=== PATIENT | female | born 1935 | race Caucasian/White ===

== ENCOUNTER 2018-07-24 13:13 | Inpatient (IN) | payer BC, OTHER ==
[2018-07-24 13:32] VITALS: BMI 23.7
--- NOTE | 2018-07-24 14:16 | PDOC ---
Attending Attestation - Resident Resident Name: Awais Garcia - ED Attending Attestation I have performed the following: I have examined & evaluated the patient, The case was reviewed & discussed with the resident, I agree w/resident's findings & plan, Exceptions are as noted - HPI HPI: 07/24/18 14:14 83 yo F h/o mult med problems here with c/o leg pain and back pain following a recent fall 2 weeks ago. ws taking pain medication at home, suddently pain got worse. no new weakness or numbness. on exam pain on palpation back, and paresthesia. - Medical Decision Making 83 yo F s/p fall one week ago, known retrolisthesis l5, s1, now with decreased sensation right foot. concerns for nerve root or cord compromise. pt unable to have mri due to pacer. unabmulatory, will require admission for pt and possible rehab, pain control ua r/o uti, labs, and cxr. cxr unremarkable. labd unremarkable. awaiting ua an ct spine. signed out to oncoming physician dr. zapien, 07/24/18 16:23 07/24/18 16:29 d/w dr Lauri joshua, will see pt in hospital. recommed Cla[facility] R[facility] for spine . ct pending. will admit . <Trudi Cuello - Last Filed: 07/24/18 16:29> - HPI HPI: 07/24/18 15:32 The patient is an 83-year-old female with past medical history significant for HTN, DM, pacemaker placement a year ago, stent placement, and L. knee partial replacement presents to the emergency department with worsening pain, s/p a fall 2 weeks prior. Per family, the patient suffered a fall about 2 weeks prior , was seen at [facility] where she had an X-ray was done that read grade 2/3 anterolisthesis of the L5 on S1. The patient was discharged with pain medication. The patient reports on Friday the pain worsened since then the patients been nonambulatory. The family report patient had an appointment with ortho, secondary to pain patient was unable to follow up. Allergies: NKA Social history: No past or present use of tobacco, alcohol or recreational drug use. Surgical history: partial knee replacement, pacemaker, and stents. PCP: Shayla Hansen - Physicial Exam PE: 07/24/18 15:32 GENERAL: Awake, alert, and fully oriented, in no acute distress HEAD: No signs of trauma LUNGS: Breath sounds equal, clear to auscultation bilaterally. No wheezes, and no crackles HEART: 3/6 systolic murmur. Regular rate and rhythm, normal S1 and S2, no rubs or gallops ABDOMEN: Soft, nontender, normoactive bowel sounds. No guarding, no rebound. No masses Pelvic exam: tender to palpation, R. hip full ROM, nontender. Back: spinal tenderness to the lower lumbar and sacral region, no cervical and thoracic spine tenderness. EXTREMITIES: lower extremity: decreased sensation to the dorsum of the right foot great/second toe, 5/5 strength in all 4 extremity. no edema. No clubbing or cyanosis. No cords. NEUROLOGICAL: Cranial nerves II through XII grossly intact. Normal speech. SKIN: Warm, Dry, normal turgor, no rashes or lesions noted. - Medical Decision Making 07/24/18 15:32 Documentation prepared by Adrianne Diehl, acting as medical billing associate for Trudi Cuello MD. 07/24/18 16:[address] Joshua. 07/24/18 16:[address] Joshua. 07/24/18 16:[address] Ngyuen. <Adrianne Diehl - Last Filed: 07/24/18 16:42> Heart Score/ECG Review #1 Compared to previous ECG there are: Other (paced ekg, TWI I AVL, LVH, left axis. v4 - v6.) <Trudi Cuello - Last Filed: 07/24/18 16:29>
--- NOTE | 2018-07-24 15:17 | PDOC ---
History of Present Illness <Sam Hankins - Last Filed: 07/24/18 18:23> - History of Present Illness Initial Comments: 07/24/18 15:05 83 yo PMH HTN, DM, Hysterectomy, pacemaker and stent 2017, L knee partial replacement, osteoporosis, multiple falls, p/w worsening acute on chronic back pain w/ decreased sensation of dorsal R foot in the setting of recent witnessed mechanical fall 2 wks ago. Pt had mechanical fall 2 wks ago but did not LOC or hit head. pt was w/u at [facility] and was found per XR report, w/ acute mildly displaced frx of R superior and inferior pubic rami, 2.2 cm anterolisthesis of L5 on S1 w/ b/l L5 pars defect, and focal anterior cortical irregularity of the lower sacrum/coccyx which may be artifactual or a nondisplaced frx. pt was medically managed ad dc w/ referral to ortho. Pt was able to walk (baseline pt ambulates w/ cane/walker) and pain was ctl w/ tylenol/ codeine (300/30). 1 week ago pt pain worsened w/ no obvious inciting factors or cause. pt is now unable to ambulate and has noticed decreased sensation of dorsal R foot specifically betw digit 1 and 2. Denies fevers, chills, DELGADO, cp, sob, n/v/d, urinary sxs, blood in stools. SH: denies smoke etoh drugs <Awais Garcia - Last Filed: 07/24/18 18:29> - General Chief Complaint: Back Pain Stated Complaint: Back Pain Past History <Sam Hankins - Last Filed: 07/24/18 18:23> - Past Medical History Anemia: No Asthma: No Cancer: No Cardiac Disorders: Yes CVA: No COPD: No CHF: No Dementia: No Diabetes: Yes (pre) GI Disorders: Yes Disorders: No HTN: Yes Hypercholesterolemia: Yes Liver Disease: No Seizures: No Thyroid Disease: No - Surgical History Abdominal Surgery: Yes Appendectomy: Yes Cardiac Surgery: Yes (stent pacemaker metronic) Cholecystectomy: No Lung Surgery: No Neurologic Surgery: No Orthopedic Surgery: Yes (partial left knee replacement) - Suicide/Smoking/Psychosocial Hx Smoking History: Never smoked Have you smoked in the past 12 months: No Information on smoking cessation initiated: No Hx Alcohol Use: No Drug/Substance Use Hx: No Substance Use Type: None <Awais Garcia - Last Filed: 07/24/18 18:29> - Past Medical History Allergies/Adverse Reactions: Allergies Allergy/AdvReac Type Severity Reaction Status Date / Time No Known Allergies Allergy Verified 01/01/12 09:12 Home Medications: Ambulatory Orders Metformin HCl [Glucophage] 500 mg PO DAILY 01/01/12 Verapamil HCl ER [Calan Sr] 240 mg PO AM 01/01/12 Apixaban [Eliquis -] 5 mg PO BID 07/24/18 Atorvastatin Ca [Lipitor] 20 mg NR 07/24/18 Metoprolol Succinate 50 mg PO DAILY 07/24/18 Sertraline HCl [Zoloft] 100 mg PO DAILY 07/24/18 Review of Systems - Review of Systems Constitutional: Yes: See HPI HEENTM: Yes: See HPI Respiratory: Yes: See HPI Cardiac (ROS): Yes: See HPI ABD/GI: Yes: See HPI : Yes: See HPI Musculoskeletal: Yes: See HPI Integumentary: Yes: See HPI Neurological: Yes: See HPI Endocrine: Yes: See HPI Hematologic/Lymphatic: Yes: See HPI <Lemuel Garciayeh - Last Filed: 07/24/18 18:29> *Physical Exam - Vital Signs Last Vital Signs Temp Pulse Resp BP Pulse Ox 98 F 82 18 152/100 98 07/24/18 17:11 07/24/18 18:04 07/24/18 18:04 07/24/18 18:04 07/24/18 18:04 <Sam Hankins - Last Filed: 07/24/18 18:23> - Vital Signs Last Vital Signs Temp Pulse Resp BP Pulse Ox 97.7 F 92 H 17 170/104 H 97 07/24/18 13:25 07/24/18 13:41 07/24/18 13:41 07/24/18 13:41 07/24/18 13:41 - Physical Exam Comments: 07/24/18 15:24 General: Well-nourished, NAD HEENT: NCAT, MMM Neck: Supple, no lymphadenopathy Respiratory: CTAB cardio: RRR S1 S2 no m/r/g Abdomen: +BS , soft, NTND Back: TTP in lumbar and sacral paraspinal and spinous processes Extremities: radial 2+ b/l. Warm, dry, no cyanosis, edema, clubbing or calf tenderness. TTP R dorsum of foot. surgical scar L knee Skin: intact. no rashes Neuro: Alert and oriented x3, strength grossly intact. decreased sensation R dorsum of foot betw great and second toe Psych: Normal mood and affect <Awais Garcia - Last Filed: 07/24/18 18:29> ED Treatment Course - LABORATORY CBC & Chemistry Diagram: 07/24/18 15:13 07/24/18 15:13 - ADDITIONAL ORDERS Additional order review: Laboratory Results 07/24/18 15:13 Sodium 141 Potassium 3.5 Chloride 104 Carbon Dioxide 28 Anion Gap 10 BUN 21 H Creatinine 0.9 Creat Clearance w eGFR 59.51 Random Glucose 125 H Calcium 8.8 Total Bilirubin 1.4 H AST 27 ALT 16 Alkaline Phosphatase 158 H Total Protein 6.9 Albumin 3.6 07/24/18 15:13 RBC 3.79 MCV 90.6 MCHC 33.2 RDW 18.9 H MPV 7.0 L Neutrophils % 86.3 H Lymphocytes % 6.5 L Monocytes % 6.0 Eosinophils % 0.6 Basophils % 0.6 - Medications Given in the ED: ED Medications Discontinued Medications Generic Name Dose Route Start Last Admin Trade Name Jose PRN Reason Stop Dose Admin Lidocaine 1 patch 07/24/18 15:19 07/24/18 17:01 Lidoderm Patch - TP 07/24/18 15:20 1 patch ONCE ONE Administration Morphine Sulfate 2 mg 07/24/18 15:22 07/24/18 15:50 Morphine Injection - IVPUSH 07/24/18 15:23 2 mg ONCE ONE Administration <Sam Hankins - Last Filed: 07/24/18 18:23> - LABORATORY CBC & Chemistry Diagram: 07/24/18 15:13 07/24/18 15:13 - RADIOLOGY Radiology Studies Ordered: Category Date Time Status LUMBAR SPINE CT W/O CONTRAST [CT] Stat CT Scan 07/24/18 15:03 Ordered CHEST X-RAY PORTABLE* [RAD] Stat Radiology 07/24/18 15:02 Ordered <Awais Garcia - Last Filed: 07/24/18 18:29> Medical Decision Making - Medical Decision Making 07/24/18 15:17 83 yo PMH HTN, DM, Hysterectomy, pacemaker and stent 2017, L knee partial replacement, osteoporosis, multiple falls, p/w worsening acute on chronic back pain w/ decreased sensation of dorsal R foot in the setting of recent witnessed mechanical fall 2 wks ago. Per XR report at [facility]: acute mildly displaced frx of R superior and inferior pubic rami, 2.2 cm anterolisthesis of L5 on S1 w/ b/l L5 pars defect, and focal anterior cortical irregularity of the lower sacrum/coccyx which may be artifactual or a nondisplaced frx. Ddx: cauda equina/cord compression, worsening of frx, lumbar strain, disc herniation, epidural abscess -CBC, CMP, UA, CXR, EKG -lumbar CT -pt has pacemaker and not a candidate for MRI -morphine and lido derm patch for pain ctl 07/24/18 16:43 CBC, CMP grossly unremarkable CXR - Single view the chest reveals an aortic stent since 01/09/2009. Is a double lead pacemaker, large heart but clear lungs. There appears to be old right rib trauma. There are cystic changes in the left shoulder. Will admit to inpatient for unable to ambulate and will f/u CT lumbar d/w dr Lauri reis, will see pt in hospital. [facility] Ruff consulted for spine <Awais Garcia - Last Filed: 07/24/18 18:29> *DC/Admit/Observation/Transfer - Discharge Dispostion Decision to Admit order: Yes <Sam Hankins - Last Filed: 07/24/18 18:23> <Awais Garcia - Last Filed: 07/24/18 18:29> Diagnosis at time of Disposition: Back pain Qualifiers: Back pain location: low back pain Chronicity: acute Back pain laterality: right Sciatica presence: with sciatica Sciatica laterality: sciatica of right side Qualified Code(s): M54.41 - Lumbago with sciatica, right side - Discharge Dispostion Condition at time of disposition: Stable
[2018-07-24 15:18] LABS: BASO % 0.6 % (0-2.0); EOS % 0.6 % (0-4.5); HEMATOCRIT 34.4 % (32.4-45.2); HEMOGLOBIN 11.4 GM/dL (10.7-15.3); LYMPH % 6.5 % (8-40); MCH 30.1 pg (25.7-33.7); MCHC 33.2 g/dl (32.0-36.0); MEAN CELL VOLUME 90.6 fl (80-96); NEUT % 86.3 % (42.8-82.8); PLATELET COUNT 342 K/MM3 (134-434); RBC 3.79 M/mm3 (3.60-5.2); RDW 18.9 % (11.6-15.6); WHITE BLOOD COUNT 8.5 K/mm3 (4.0-10.0)
[2018-07-24] MEDS ORDERED: LIDOCAINE 5% TOPICAL PATCH TP ONE (15:19)
[2018-07-24] MEDS ORDERED: morphine CARPU-JECT 4 MG/1 ML DISP.SYRIN IVPUSH ONE (15:22)
[2018-07-24] MEDS ORDERED: morphine SULFATE 4 MG/ML VIAL ONE (15:46)
[2018-07-24 16:00] LABS: BLOOD UREA NITROGEN 21 mg/dL (7-18); GLUCOSE,RANDOM 125 mg/dL (74-106)
[2018-07-24 16:01] LABS: ALBUMIN 3.6 g/dl (3.4-5.0); ALK PHOS 158 U/L (45-117); ANION GAP 10 MMOL/L (8-16); BILIRUBIN,TOTAL 1.4 mg/dL (0.2-1); CALCIUM 8.8 mg/dL (8.5-10.1); CHLORIDE 104 mmol/L (98-107); CO2 28 mmol/L (21-32); CREATININE 0.9 mg/dL (0.55-1.3); POTASSIUM 3.5 mmol/L (3.5-5.1); SGOT/AST 27 U/L (15-37); SGPT/ALT 16 U/L (13-61); SODIUM 141 mmol/L (136-145); TOT PROT 6.9 g/dl (6.4-8.2)
[2018-07-24] MEDS ORDERED: LIDOCAINE 5% TOPICAL PATCH ONE (16:07)
[2018-07-24] MEDS: MORPHINE SULFATE 2 MG/ML VIAL IVPUSH PRN (20:26)
[2018-07-24] MEDS: APIXABAN 5 MG TABLET PO SCH (21:56)
[2018-07-24] MEDS: ATORVASTATIN CA 20 MG TABLET (FP) PO SCH (21:57)
[2018-07-24] MEDS: LIDOCAINE PATCH REMOVAL MC SCH (21:57)
--- NOTE | 2018-07-24 23:49 | HP ---
Admitting History and Physical - Primary Care Physician PCP: Lauri Joshua - Admission Chief Complaint: Back pain. Right leg pain, radiating from the back History of Present Illness: Pt with significant Hx/o falls, s/p mechanical fall 2 weeks ago, seen in [facility] ER, told to have right side pubic rami fracture, L5-S1 anterolisthesis and possible coccyx fracture, DC'ed home with Ortho appt, started to have worsening back pain, more at mid to lower lumbar area, 5 days ( on Friday) to the point that pt became bedbound; pt states that her pain is going down to the right leg and now cannot move much the right leg secondary to back pain. History Source: Patient, Family Member (pt's daughter at bedside) - Past Medical History Cardiovascular: Yes: CAD (s/p PCI with stent placemnet), HTN, Hyperlipdemia Endocrine: Yes: Diabetes Mellitus - Past Surgical History Past Surgical History: Yes: Hysterectomy Additional Past Surgical History: Left Knee replacement - Smoking History Smoking history: Former smoker Have you smoked in the past 12 months: No - Alcohol/Substance Use Hx Alcohol Use: No Home Medications - Allergies Allergies/Adverse Reactions: Allergies Allergy/AdvReac Type Severity Reaction Status Date / Time No Known Allergies Allergy Verified 01/01/12 09:12 - Home Medications Home Medications: Ambulatory Orders Metformin HCl [Glucophage] 500 mg PO DAILY 01/01/12 Verapamil HCl ER [Calan Sr] 240 mg PO AM 01/01/12 Apixaban [Eliquis -] 5 mg PO BID 07/24/18 Atorvastatin Ca [Lipitor] 20 mg NR 07/24/18 Metoprolol Succinate 50 mg PO DAILY 07/24/18 Sertraline HCl [Zoloft] 100 mg PO DAILY 07/24/18 Review of Systems - Review of Systems Constitutional: denies: Chills, Fever Eyes: denies: Blurred Vision, Double Vision HENT: denies: Ear Discharge, Ear Pain, Nasal Congestion, Throat Pain Neck: denies: Pain on Movement, Stiffness Cardiovascular: denies: Chest Pain, Edema, Palpitations Respiratory: reports: Wheezing. denies: Cough, SOB Gastrointestinal: denies: Abdominal Pain, Nausea, Vomiting Genitourinary: denies: Burning, Discharge Musculoskeletal: reports: Back Pain Integumentary: denies: Blister, Erythema Neurological: reports: Unsteady Gait (old). denies: Change in LOC, Change in Speech, Confusion, Numbness, Parasthesia Endocrine: denies: Excessive Sweating, Intolerance to Cold Hematology/Lymphatic: denies: Easily Bruised, Excessive Bleeding Psychiatric: denies: Anxiety, Depression Physical Examination Vital Signs: Vital Signs Temperature 98 F 07/24/18 17:11 Pulse Rate 82 07/24/18 18:04 Respiratory Rate 18 07/24/18 18:04 Blood Pressure 152/100 07/24/18 18:04 O2 Sat by Pulse Oximetry (%) 98 07/24/18 18:04 Constitutional: Yes: No Distress, Calm Eyes: Yes: Conjunctiva Clear, EOM Intact HENT: No: Pharyngeal Erythema, Rhinnorhea Neck: Yes: Trachea Midline. No: Lymphadenopathy Cardiovascular: Yes: Regular Rate and Rhythm, S1, S2 Respiratory: Yes: Regular, CTA Bilaterally. No: Rales Gastrointestinal: Yes: Normal Bowel Sounds, Soft. No: Tenderness ...Rectal Exam: Yes: Deferred Breast(s): Yes: Other (deferred) Musculoskeletal: Yes: Back Pain (worse with right leg movement). No: Joint Stiffness Extremities: No: Cold, Cool Edema: No Integumentary: Yes: Bruising (of the left knee) Neurological: Yes: Alert, Oriented, Other (Motor of the right leg is limited ( lifting the leg pasive or active at 15 degrees) by pain; sensation to touch and proprioception is decreased in the right foot. Otherwise normal motor and sensory exam in UE/ left LE/ face.) Psychiatric: Yes: Alert, Oriented Labs: CBC, BMP 07/24/18 15:13 07/24/18 15:13 Imaging - Results Chest X-ray: Image Reviewed Cat Scan: Pending Problem List - Problems (1) Back pain Code(s): M54.9 - DORSALGIA, UNSPECIFIED Qualifiers: Back pain location: low back pain Chronicity: acute Back pain laterality : right Sciatica presence: with sciatica Sciatica laterality: sciatica of right side Qualified Code(s): M54.41 - Lumbago with sciatica, right side (2) Sensory abnormality of lumbar dermatome distribution Code(s): R20.8 - OTHER DISTURBANCES OF SKIN SENSATION (3) Neuropathy Code(s): G62.9 - POLYNEUROPATHY, UNSPECIFIED (4) Hypertension, uncontrolled Code(s): I10 - ESSENTIAL (PRIMARY) HYPERTENSION (5) Fall Code(s): W19.XXXA - UNSPECIFIED FALL, INITIAL ENCOUNTER (6) Pelvic fracture Code(s): S32.9XXA - FRACTURE OF UNSP PARTS OF LUMBOSACRAL SPINE AND PELVIS, INIT (7) Anterolisthesis Code(s): M43.10 - SPONDYLOLISTHESIS, SITE UNSPECIFIED (8) Impaired gait Code(s): R26.9 - UNSPECIFIED ABNORMALITIES OF GAIT AND MOBILITY (9) Diabetes mellitus Code(s): E11.9 - TYPE 2 DIABETES MELLITUS WITHOUT COMPLICATIONS Assessment/Plan To f/u CT scan report NeuroSx consult Neurology consult Pain control DVT prophylaxis Restart Metoprolol AM labs
[2018-07-25] MEDS: MORPHINE SULFATE 2 MG/ML VIAL IVPUSH PRN ×2 (02:50→08:19)
[2018-07-25] MEDS: VERAPAMIL HCL 240 MG E.R. TABLET (FP) PO SCH (06:46)
[2018-07-25] MEDS: metFORMIN HCL 500 MG TABLET (FP) PO SCH (06:46)
[2018-07-25] MEDS: INSULIN SLIDING SCALE (NOVOLOG) 1 VIAL SQ SCH ×2 (06:52→16:42)
[2018-07-25 08:03] LABS: HEMATOCRIT 33.4 % (32.4-45.2); HEMOGLOBIN 11.2 GM/dL (10.7-15.3); MCH 30.2 pg (25.7-33.7); MCHC 33.6 g/dl (32.0-36.0); MEAN CELL VOLUME 89.9 fl (80-96); MEAN PLT VOLUME 6.9 fl (7.5-11.1); PLATELET COUNT 315 K/MM3 (134-434); RBC 3.71 M/mm3 (3.60-5.2); RDW 19.3 % (11.6-15.6); WHITE BLOOD COUNT 6.6 K/mm3 (4.0-10.0)
--- NOTE | 2018-07-25 08:54 | PN ---
Progress Note (short form) - Note Progress Note: NEUROSURGERY CONSULT DICTATED Asked to r/o "cauda equina/cord compression" H/o HTN, PPM, CAD, L knee partial replacement, s/p mechanical fall 2 weeks ago, seen in [facility] ER, and found to have right side pubic rami fracture, L5-S1 anterolisthesis and possible coccyx fracture. c/o worsening low back pain and could not ambulate; R knee pain and numbness. Denies foot numbness. No B/B control issue. PE: AF, VSS General- unremarkable CN- intact; Motor- 5/5 except R EHL/TA/gastroc/IP 4/5; Sensation- intact LT; DTR - hyporeflexic CT LS spine- grade II L5-S1 isthmic spondyolisthesis (B L5 pars defect); canal not compromised,marked B L5-S1 foramenal stenosis; DJD throughout; sacral fracture (S1, S2, and S1 laminar, non-displaced) Reported pelvic rami fx and sacral vertical fracture B 5 spondyolysis with L5-S1 spondyolisthesis with R L5 radiculopathy; no cauda equina syndrome (there is no cord at L5-S1, conus ends at L1-2) Add Neurontin for radicular pain and back pain Could consider LSO (lumbo-sacral) for immobilization/support Can consider EPSI if persistent pain Rehab recommended Pt not interested in surgical intervention anyway
[2018-07-25 09:11] LABS: ALBUMIN 3.5 g/dl (3.4-5.0); ALK PHOS 157 U/L (45-117); ANION GAP 12 MMOL/L (8-16); BILIRUBIN,TOTAL 1.4 mg/dL (0.2-1); BLOOD UREA NITROGEN 23 mg/dL (7-18); CALCIUM 8.9 mg/dL (8.5-10.1); CHLORIDE 105 mmol/L (98-107); CO2 24 mmol/L (21-32); CREATININE 0.7 mg/dL (0.55-1.3); GLUCOSE,RANDOM 95 mg/dL (74-106); POTASSIUM 3.1 mmol/L (3.5-5.1); SGOT/AST 19 U/L (15-37); SGPT/ALT 15 U/L (13-61); SODIUM 141 mmol/L (136-145); TOT PROT 6.6 g/dl (6.4-8.2)
[2018-07-25] MEDS ORDERED: FLU VACCINE QUAD 60 MCG/0.5 ML (MDV 18-19) IM ONE (10:00)
[2018-07-25] MEDS: APIXABAN 5 MG TABLET PO SCH ×2 (10:08→21:21)
[2018-07-25] MEDS: SERTRALINE HCL 50 MG TABLET (FP) PO SCH (10:08)
--- NOTE | 2018-07-25 10:26 | EKG ---
Test Reason : Blood Pressure : / mmHG Vent. Rate : 086 BPM Atrial Rate : 086 BPM P-R Int : 186 ms QRS Dur : 166 ms QT Int : 466 ms P-R-T Axes : 042 -07 170 degrees QTc Int : 557 ms Atrial-sensed ventricular-paced rhythm ABNORMAL ECG WHEN COMPARED WITH ECG OF 09-JAN-2009 07:19, ELECTRONIC VENTRICULAR PACEMAKER HAS REPLACED SINUS RHYTHM Confirmed by MARIA EUGENIA COLLINS MD ([id number]) on 07/25/2018 10:26:34 AM Referred By: Confirmed By:MARIA EUGENIA COLLINS MD
--- NOTE | 2018-07-25 11:01 | PN ---
Progress Note, Physician Chief Complaint: events noted pgt in bed, family (daughter, son) at bedside pt with occasional back and pelvic pain - Current Medication List Current Medications: Active Medications Apixaban (Eliquis -) 5 mg PO BID [facility] Last Admin: 07/25/18 10:08 Dose: 5 mg Atorvastatin Calcium (Lipitor -) 20 mg PO HS [facility] Last Admin: 07/24/18 21:57 Dose: 20 mg Gabapentin (Neurontin -) 300 mg PO TID [facility] Insulin Aspart (Novolog Vial Sliding Scale -) 1 vial SQ BIDAC [facility]; Protocol Last Admin: 07/25/18 06:52 Dose: Not Given Metformin HCl (Glucophage -) 500 mg PO 0700 [facility] Last Admin: 07/25/18 06:46 Dose: 500 mg Metoprolol Succinate (Toprol Xl -) 50 mg PO DAILY [facility] Last Admin: 07/25/18 10:08 Dose: 50 mg Miscellaneous (Lidoderm Patch Removal) 1 each MC DAILY@2200 [facility] Last Admin: 07/24/18 21:57 Dose: 1 each Morphine Sulfate (Morphine Sulfate) 2 mg IVPUSH Q4H PRN PRN Reason: PAIN LEVEL 6-10 Last Admin: 07/25/18 08:19 Dose: 2 mg Potassium Chloride (K-Dur -) 20 meq PO DAILY [facility] Sertraline HCl (Zoloft -) 100 mg PO DAILY [facility] Last Admin: 07/25/18 10:08 Dose: 100 mg Verapamil HCl (Calan Sr -) 240 mg PO AM [facility] Last Admin: 07/25/18 06:46 Dose: Not Given - Objective Vital Signs: Vital Signs Temperature 97.9 F 07/25/18 05:25 Pulse Rate 76 07/25/18 05:25 Respiratory Rate 18 07/25/18 05:25 Blood Pressure 156/92 07/25/18 05:25 O2 Sat by Pulse Oximetry (%) 96 07/25/18 03:33 Constitutional: Yes: No Distress, Calm Eyes: Yes: Conjunctiva Clear HENT: Yes: Atraumatic Neck: Yes: Supple Cardiovascular: Yes: Regular Rate and Rhythm Respiratory: Yes: CTA Bilaterally Gastrointestinal: Yes: Soft. No: Distention, Tenderness Genitourinary: No: CVA Tenderness - Left, CVA Tenderness - Right Musculoskeletal: No: Joint Stiffness, Joint Swelling Extremities: No: Cold, Cool, Cyanosis Edema: No Integumentary: No: Pressure Ulcer, Rash, Venous Stasis Changes Neurological: Yes: WNL, Alert, Oriented ...Motor Strength: WNL Psychiatric: Yes: WNL, Alert, Oriented. No: Agitated, Suicidal Ideation Labs: CBC, BMP 07/25/18 07:30 07/25/18 07:30 - ....Imaging X-ray: Report Reviewed Other: Report Reviewed Assessment/Plan 83 yo PMH HTN, DM, Hysterectomy, pacemaker and stent 2017, L knee partial replacement, osteoporosis, multiple falls, p/w worsening acute on chronic back pain w/ decreased sensation of dorsal R foot in the setting of recent witnessed mechanical fall 2 wks ago. Pt had mechanical fall 2 wks ago but did not LOC or hit head. pt was w/u at [facility] and was found per XR report, w/ acute mildly displaced frx of R superior and inferior pubic rami, 2.2 cm anterolisthesis of L5 on S1 w/ b/l L5 pars defect, and focal anterior cortical irregularity of the lower sacrum/coccyx which may be artifactual or a nondisplaced frx. pt was medically managed ad dc w/ referral to ortho. Pt was able to walk (baseline pt ambulates w/ cane/walker) and pain was ctl w/ tylenol/ codeine (300/30). 1 week ago pt pain worsened w/ no obvious inciting factors or cause. pt is now unable to ambulate and has noticed decreased sensation of dorsal R foot specifically betw digit 1 and 2. admit r/o cauda equina neurology and neurosurgery eval PT rehab DVT PFX pain control falls decubs aspiration PFX d/w pt and family at bedside; will call pt's PCP dr Nubia Mendoza
--- NOTE | 2018-07-25 13:59 | CONS ---
DATE OF CONSULTATION: DATE OF DICTATION: 07/25/2018 REQUESTING PHYSICIANS: Dr. Joshua and Dr. Garcia EMPLOYEE COMMUNICATIONS INTERN: Yung Ruff MD, Neurosurgery CHIEF COMPLAINT: Status post fall with lower back pain and right L5 radiculopathy. HISTORY OF PRESENT ILLNESS: The patient is an 83-year-old right-handed female with history of hypertension, PPM, and hypercholesterolemia who had sustained a mechanical fall about 2 weeks ago. She was initially seen at [facility], where she was reported to have a pelvic rami fracture which was stable by report. She also was found to have grade II L5-S1 degenerative spondylolisthesis. She complains of increasing lower back pain. She had experienced some pain radiating down into her right lower extremity down to the buttock, thigh and calf, but the sciatica portion has subsided. She remains with lower back pain. Because of her pain she was not able to ambulate and she was sent to the emergency room as a result at [facility]. She has some mild subjective right lower extremity weakness but denies numbness except for the right anterior knee area. She stated that she might have had some knee procedure done previously which was about 10 years ago. She has no bowel or bladder incontinence. PAST MEDICAL HISTORY: Significant for hypertension, hypercholesterolemia and recent falls as well as borderline hyperglycemia. MEDICATIONS: Currently include a Lidoderm patch; Eliquis; Zoloft; Toprol XL; Glucophage; Calan; Lipitor; morphine. ALLERGIES: There is no known drug allergy. FAMILY HISTORY: Noncontributory. SOCIAL HISTORY: She does not smoke nor drink. She lives at home. She is retired. REVIEW OF SYSTEMS: Otherwise negative for major constitutional, head and neck, cardiovascular, pulmonary, gastrointestinal, genitourinary, endocrinological, neurological or psychological problem except for the above. PHYSICAL EXAMINATION:Vital Signs: Temperature is 97.9, blood pressure is 156/ 92 with a pulse rate of 76, O2 saturation 96% on room air. HEENT: Shows this lady to be normocephalic, atraumatic, anicteric. Neck: Supple. Coronary: Demonstrated a regular rhythm. Lungs: Clear bilaterally. Abdomen: Benign. Extremities: Show no signs of DVT. She has bilateral ankle foam boots. Neurologic: She is awake, alert and oriented x3. Cranial nerve examination is intact II-XII. Motor examination shows 5/5 strength except right iliopsoas, tibialis anterior, extensor hallucis longus and gastrocnemius which are 4/5. Sensory examination is intact to light touch except for right anterior knee region. Deep tendon reflexes are hyporeflexive throughout. There is no pathological long tract sign. Back: Cannot be examined in detail because of the patient's pain and inability to move her adequately. LABORATORY EXAMINATION: Shows white blood cell count 6.6, hemoglobin is 11.2. Serum sodium is 141 and potassium is 3.5. BUN is 21 and creatinine is 0.9. Random glucose is 125. Lumbar spine CT scan demonstrated bilateral L5 pars defect. There is associated grade 2 spondylolisthesis at L5-S1. There is marked foraminal stenosis as a result. There is an acute nondisplaced fracture of the right S1 lamina as well as a vertical fracture into the sacrum down to S1 and S2. There is no displacement. IMPRESSION: 1. Multiple sacral and reported pelvic ramus fracture. 2. Isthmic spondylolisthesis, grade 2, L5-S1 with right L5 radiculopathy. 3. Hypertension/coronary artery disease. 4. History of peripheral pacemaker. RECOMMENDATIONS: The patient presents with increasing back pain after a mechanical fall a couple weeks ago. Her memory of the fall is actually pretty sketchy and she does not remember all the details. Her only deficit is right lower extremity where she has 4/5 strength likely because of the recent pelvic fracture as well as the L5-S1 spondylolisthesis with foraminal narrowing. Given her age and overall medical condition, surgical intervention is not recommended. The CT scan does demonstrate adequate spinal canal even despite L5-S1 spondylolisthesis. That clearly is chronic. She does have multiple sacral fracture. A lumbar sacral arthrosis could be considered for immobilization and support. A course of rehab is recommended. I took the liberty of adding and putting the patient on gabapentin 300 mg 3 times a day to improve her pain control including the right L5 radiculopathy. No neurosurgical intervention is recommended at this time as the patient has not undergone much conservative treatment. If her pain persists pain management injections could be considered. The patient is not interested in surgical intervention anyway. YUNG RUFF M.D. MEHDI/[id number] [facility]
--- NOTE | 2018-07-25 14:42 | CON.NEURO ---
Consult Consult Specialty:: Neurology for [facility] Referred by:: Dr. Joshua Reason for Consultation:: Fall with severe back pain - History of Present Illness Chief Complaint: Back pain History of Present Illness: 83 yo PMH HTN, DM, Hysterectomy, pacemaker and stent L knee partial replacement, osteoporosis, multiple falls who fell 3 weeks ago and hurt her back. She was taken to [facility] where a plane film of the lumbar spine showed sacral fracture and L5/S1 spondylolisthesis. She went home and although was in pain, was able to function until several days ago when she had without warning and apparent precipitant when she had acute worsening of her pain in the mid lower back, occasionally radiating down the inside of her leg, and at times noting numbness of the dorsum of her right foot. The pain became severe enough that she was unable to walk and she was confined to bed where if she stayed still she experienced no pain. Getting up was excruciating. 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 Her family says that she is supposed to walk with a cane, though she says that she doesn't use it and doesn't really need it, though her family seems to feel that she has been told repeatedly that she does. - History Source History Provided By: Patient, Family Member, Medical Record Limitations to Obtaining History: No Limitations - Past Medical History Cardio/Vascular: Yes: CAD (s/p PCI with stent placemnet), HTN, Hyperlipdemia, Other (Pacemaker) ...: No Endocrine: Yes: Diabetes Mellitus - Past Surgical History Past Surgical History: Yes: Hysterectomy - Alcohol/Substance Use Hx Alcohol Use: No - Smoking History Smoking history: Former smoker Have you smoked in the past 12 months: No Home Medications - Allergies Allergies/Adverse Reactions: Allergies Allergy/AdvReac Type Severity Reaction Status Date / Time No Known Allergies Allergy Verified 01/01/12 09:12 - Home Medications Home Medications: Ambulatory Orders Metformin HCl [Glucophage] 500 mg PO DAILY 01/01/12 Verapamil HCl ER [Calan Sr] 240 mg PO AM 01/01/12 Apixaban [Eliquis -] 5 mg PO BID 07/24/18 Atorvastatin Ca [Lipitor] 20 mg NR 07/24/18 Metoprolol Succinate 50 mg PO DAILY 07/24/18 Sertraline HCl [Zoloft] 100 mg PO DAILY 07/24/18 Physical Exam-Neuro Vital Signs: Vital Signs Temperature 97.9 F 07/25/18 05:25 Pulse Rate 76 07/25/18 05:25 Respiratory Rate 18 07/25/18 05:25 Blood Pressure 156/92 07/25/18 05:25 O2 Sat by Pulse Oximetry (%) 96 07/25/18 03:33 Constitutional: Yes: Well Nourished, No Distress, Calm Labs: CBC, BMP 07/25/18 07:30 07/25/18 07:30 - Neuro Exam Level Of Consciousness: Yes: Alert, Oriented to Person, Oriented to Place ( Thinks that it is June.) Eyes: Yes: CALE, Other (EOMI) Speech: WNL Cranial Nerves II-XII Intact: Yes DTR's: 0 Left Achilles, 0 Right Achilles, 2+ Left Bicep, 2+ Right Bicep, 2+ Left Tricep, 2+ Right Tricep, 2+ Left Brachioradialis, 2+ Right Brachioradialis Babinski: Absent Response to light touch: Normal (except for right foot between digits 1 and 2 where she has reduced sensation (L5 distribution)) Motor Strength: 5/5: Left Arm, Right Arm, Left Leg, Right Leg (Some guarding due to pain, but she is able to exert full strenght in all limbs) Gait: Deferred Imaging - Results Cat Scan: Report Reviewed (L5/S1 Spondylosis, spondylolisthesis with associated foraminal stensosis (apparently previously noted on older films) Acute S2 and S1 fractures minimal to no dispalcement but some angling of S2.), Image Reviewed Problem List - Problems (1) Vertebral fracture Code(s): [id number] - (2) Lumbar radiculopathy, chronic Code(s): M54.16 - RADICULOPATHY, LUMBAR REGION (3) Back pain Code(s): M54.9 - DORSALGIA, UNSPECIFIED Qualifiers: Back pain location: low back pain Chronicity: acute Back pain laterality : right Sciatica presence: with sciatica Sciatica laterality: sciatica of right side Qualified Code(s): M54.41 - Lumbago with sciatica, right side (4) Fall Code(s): W19.XXXA - UNSPECIFIED FALL, INITIAL ENCOUNTER (5) Impaired gait Code(s): R26.9 - UNSPECIFIED ABNORMALITIES OF GAIT AND MOBILITY (6) Sensory abnormality of lumbar dermatome distribution Code(s): R20.8 - OTHER DISTURBANCES OF SKIN SENSATION Assessment/Plan She has acute fracture in the sacrum which is the source of the bulk of her pain. I think that the lumbar radiculopathy is chronic, though she may have jostled the area giving her some acute component. I agree with the need for surgical evaluation, pain management, and importantly she must be made to appreciate her limitations. I stressed to her that although she might be fine 90% of the time without the cane, that when she is faced with uneven surfaces, poorly lit areas, or visually ambiguous stimuli, she may falter and be faced with another potential fall. She has been relatively ranulfo to date, but she needs to respect her limitations, or she'll likely not be so ranulfo in the future , and have a non-remediable problem. I likened the cane to insurance, where you don't need it until you really do. I think that I got through, but I also think that she has some subtle cognitive decline that may be impairing her judgment and this should probably be further evaluated as well on an outpatient basis. I could be wrong though, and her getting the date wrong could entirely be due to her being on narcotics at this point. Thanks.
[2018-07-25] MEDS: POTASSIUM CHLORIDE TABS 10 MEQ TABLET.ER (FP) PO SCH (16:39)
[2018-07-25] MEDS: GABAPENTIN 300 MG CAPSULE (FP) PO SCH ×2 (16:40→21:21)
[2018-07-25] MEDS: ATORVASTATIN CA 20 MG TABLET (FP) PO SCH (21:21)
[2018-07-25] MEDS: LIDOCAINE PATCH REMOVAL MC SCH (21:22)
[2018-07-26] MEDS: VERAPAMIL HCL 240 MG E.R. TABLET (FP) PO SCH (06:28)
[2018-07-26] MEDS: GABAPENTIN 300 MG CAPSULE (FP) PO SCH ×3 (06:28→22:07)
[2018-07-26] MEDS: metFORMIN HCL 500 MG TABLET (FP) PO SCH (06:29)
[2018-07-26] MEDS: INSULIN SLIDING SCALE (NOVOLOG) 1 VIAL SQ SCH ×2 (06:29→16:56)
[2018-07-26] MEDS: MORPHINE SULFATE 2 MG/ML VIAL IVPUSH PRN ×4 (06:50→22:06)
[2018-07-26 07:41] LABS: EOS % 2.6 % (0-4.5); HEMATOCRIT 33.9 % (32.4-45.2); HEMOGLOBIN 11.3 GM/dL (10.7-15.3); LYMPH % 16.2 % (8-40); MCH 29.9 pg (25.7-33.7); MCHC 33.4 g/dl (32.0-36.0); MEAN CELL VOLUME 89.6 fl (80-96); MONO % 8.8 % (3.8-10.2); NEUT % 71.4 % (42.8-82.8); PLATELET COUNT 338 K/MM3 (134-434); RBC 3.78 M/mm3 (3.60-5.2); RDW 18.6 % (11.6-15.6); WHITE BLOOD COUNT 6.7 K/mm3 (4.0-10.0)
[2018-07-26] MEDS: SERTRALINE HCL 50 MG TABLET (FP) PO SCH (09:20)
[2018-07-26] MEDS: APIXABAN 5 MG TABLET PO SCH ×2 (09:20→22:07)
[2018-07-26] MEDS: POTASSIUM CHLORIDE TABS 10 MEQ TABLET.ER (FP) PO SCH (09:21)
[2018-07-26 10:12] LABS: ALBUMIN 3.4 g/dl (3.4-5.0); ALK PHOS 154 U/L (45-117); ANION GAP 11 MMOL/L (8-16); BILIRUBIN,TOTAL 1.4 mg/dL (0.2-1); BLOOD UREA NITROGEN 25 mg/dL (7-18); CALCIUM 8.8 mg/dL (8.5-10.1); CHLORIDE 104 mmol/L (98-107); CO2 25 mmol/L (21-32); CREATININE 0.8 mg/dL (0.55-1.3); GLUCOSE,RANDOM 91 mg/dL (74-106); POTASSIUM 3.3 mmol/L (3.5-5.1); SGOT/AST 22 U/L (15-37); SGPT/ALT 15 U/L (13-61); SODIUM 141 mmol/L (136-145); TOT PROT 6.7 g/dl (6.4-8.2)
--- NOTE | 2018-07-26 15:14 | PN ---
Progress Note, Physician Chief Complaint: in bed NAD sister at bedside; had pain earlier received morphine, now more comfortable - Current Medication List Current Medications: Active Medications Apixaban (Eliquis -) 5 mg PO BID [facility] Last Admin: 07/26/18 09:20 Dose: 5 mg Atorvastatin Calcium (Lipitor -) 20 mg PO HS [facility] Last Admin: 07/25/18 21:21 Dose: 20 mg Gabapentin (Neurontin -) 300 mg PO TID [facility] Last Admin: 07/26/18 13:12 Dose: 300 mg Insulin Aspart (Novolog Vial Sliding Scale -) 1 vial SQ BIDAC [facility]; Protocol Last Admin: 07/26/18 06:29 Dose: Not Given Metformin HCl (Glucophage -) 500 mg PO 0700 [facility] Last Admin: 07/26/18 06:29 Dose: 500 mg Metoprolol Succinate (Toprol Xl -) 50 mg PO DAILY [facility] Last Admin: 07/26/18 09:20 Dose: 50 mg Miscellaneous (Lidoderm Patch Removal) 1 each MC DAILY@2200 [facility] Last Admin: 07/25/18 21:22 Dose: 1 each Morphine Sulfate (Morphine Sulfate) 2 mg IVPUSH Q4H PRN PRN Reason: PAIN LEVEL 6-10 Last Admin: 07/26/18 13:12 Dose: 2 mg Potassium Chloride (K-Dur -) 20 meq PO DAILY [facility] Last Admin: 07/26/18 09:21 Dose: 20 meq Sertraline HCl (Zoloft -) 100 mg PO DAILY [facility] Last Admin: 07/26/18 09:20 Dose: 100 mg Verapamil HCl (Calan Sr -) 240 mg PO AM [facility] Last Admin: 07/26/18 06:28 Dose: 240 mg - Objective Vital Signs: Vital Signs Temperature 98.2 F 07/26/18 05:03 Pulse Rate 73 07/26/18 05:03 Respiratory Rate 16 07/26/18 09:00 Blood Pressure 166/98 07/26/18 05:03 O2 Sat by Pulse Oximetry (%) 94 L 07/26/18 09:00 Constitutional: Yes: No Distress, Calm Eyes: Yes: Conjunctiva Clear HENT: Yes: Atraumatic Neck: Yes: Supple Cardiovascular: Yes: Regular Rate and Rhythm Respiratory: Yes: CTA Bilaterally Gastrointestinal: Yes: Soft. No: Distention Genitourinary: No: CVA Tenderness - Left, CVA Tenderness - Right Musculoskeletal: No: Joint Stiffness, Joint Swelling Extremities: No: Cold, Cool, Cyanosis Edema: No Integumentary: No: Rash, Venous Stasis Changes Neurological: Yes: WNL, Alert, Oriented ...Motor Strength: WNL Psychiatric: Yes: WNL, Alert, Oriented. No: Agitated Labs: CBC, BMP 07/26/18 06:45 07/26/18 06:45 - ....Imaging Other: Report Reviewed Assessment/Plan 83 yo PMH HTN, DM, Hysterectomy, pacemaker and stent 2017, L knee partial replacement, osteoporosis, multiple falls, p/w worsening acute on chronic back pain w/ decreased sensation of dorsal R foot in the setting of recent witnessed mechanical fall 2 wks ago, s/p acute mildly displaced frx of R superior and inferior pubic rami, 2.2 cm anterolisthesis of L5 on S1 w/ b/l L5 pars defect, and focal anterior cortical irregularity of the lower sacrum/coccyx c/w nondisplaced frx. seen by neurology and neurosurgery - rec conservative tx PT rehab at SNF when stable DVT PFX pain control falls decubs aspiration PFX d/w pt and sister; d/w pt's PCP dr Nubia Mendoza
[2018-07-26] MEDS: ACETAMINOPHEN 325 MG TABLET (FP) PO PRN (22:07)
[2018-07-26] MEDS: ATORVASTATIN CA 20 MG TABLET (FP) PO SCH (22:08)
[2018-07-26] MEDS: LIDOCAINE PATCH REMOVAL MC SCH (22:10)
[2018-07-27] MEDS: MORPHINE SULFATE 2 MG/ML VIAL IVPUSH PRN ×2 (05:43→10:21)
[2018-07-27] MEDS: GABAPENTIN 300 MG CAPSULE (FP) PO SCH ×3 (06:59→21:24)
[2018-07-27] MEDS: metFORMIN HCL 500 MG TABLET (FP) PO SCH (07:00)
[2018-07-27] MEDS: VERAPAMIL HCL 240 MG E.R. TABLET (FP) PO SCH (07:00)
[2018-07-27] MEDS: INSULIN SLIDING SCALE (NOVOLOG) 1 VIAL SQ SCH ×2 (07:01→16:22)
--- NOTE | 2018-07-27 09:45 | PN ---
Progress Note (short form) - Note Progress Note: Neurology History of Present Illness: 83 yo PMH HTN, DM, Hysterectomy, pacemaker and stent 2017, L knee partial replacement, osteoporosis, multiple falls who fell 3 weeks ago and hurt her back. Seen by Dr. Jenkins during weekend coverage. Reportedly was taken to [facility] where a plane film of the lumbar spine showed sacral fracture and L5/S1 spondylolisthesis. She went home and although was in pain, was able to function until several days ago when she had without warning and apparent precipitant when she had acute worsening of her pain in the mid lower back, occasionally radiating down the inside of her leg, and at times noting numbness of the dorsum of her right foot. The pain became severe enough that she was unable to walk and she was confined to bed where if she stayed still she experienced no pain. Getting up was excruciating. 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 CT of lumbar spine completed and reviewed. Neurosurgery note from Dr. Clarence Ruff reviewed. Gabapentin 3 times a day started. Still with pain this AM and holding right lumbar flank with discomfort, though is able to move her lower extremities with strength. Discussed with her possible trial of muscle relaxant in hopes of providing some relief. If this is not effective, then epidural steroid injections may be considered as documented by neurosurgery note. Patient has not had such procedures in the past but is amenable at this time. Agree with avoidance of surgical intervention at this time. Active Medications Acetaminophen (Tylenol -) 650 mg PO Q6H PRN PRN Reason: PAIN Last Admin: 07/26/18 22:07 Dose: 650 mg Apixaban (Eliquis -) 5 mg PO BID [facility] Last Admin: 07/26/18 22:07 Dose: 5 mg Atorvastatin Calcium (Lipitor -) 20 mg PO HS [facility] Last Admin: 07/26/18 22:08 Dose: 20 mg Gabapentin (Neurontin -) 300 mg PO TID [facility] Last Admin: 07/27/18 06:59 Dose: 300 mg Insulin Aspart (Novolog Vial Sliding Scale -) 1 vial SQ BIDAC [facility]; Protocol Last Admin: 07/27/18 07:01 Dose: Not Given Metformin HCl (Glucophage -) 500 mg PO 0700 [facility] Last Admin: 07/27/18 07:00 Dose: 500 mg Metoprolol Succinate (Toprol Xl -) 50 mg PO DAILY [facility] Last Admin: 07/26/18 09:20 Dose: 50 mg Miscellaneous (Lidoderm Patch Removal) 1 each MC DAILY@2200 [facility] Last Admin: 07/26/18 22:10 Dose: 1 each Morphine Sulfate (Morphine Sulfate) 2 mg IVPUSH Q4H PRN PRN Reason: PAIN LEVEL 6-10 Last Admin: 07/27/18 05:43 Dose: 2 mg Potassium Chloride (K-Dur -) 20 meq PO DAILY [facility] Last Admin: 07/26/18 09:21 Dose: 20 meq Sertraline HCl (Zoloft -) 100 mg PO DAILY [facility] Last Admin: 07/26/18 09:20 Dose: 100 mg Verapamil HCl (Calan Sr -) 240 mg PO AM [facility] Last Admin: 07/27/18 07:00 Dose: 240 mg Physical Exam-Neuro Vital Signs: Vital Signs Temperature 98.2 F 07/27/18 09:00 Pulse Rate 77 07/27/18 09:00 Respiratory Rate 20 07/27/18 09:00 Blood Pressure 142/94 07/27/18 09:00 O2 Sat by Pulse Oximetry (%) 95 07/26/18 21:00 Constitutional: Yes: Well Nourished, No Distress, Calm - Neuro Exam Level Of Consciousness: Yes: Alert, Oriented to Person, Oriented to Place ( Thinks that it is June.) Eyes: Yes: CALE, Other (EOMI) Speech: WNL Cranial Nerves II-XII Intact: Yes DTR's: 0 Left Achilles, 0 Right Achilles, 2+ Left Bicep, 2+ Right Bicep, 2+ Left Tricep, 2+ Right Tricep, 2+ Left Brachioradialis, 2+ Right Brachioradialis Babinski: Absent Response to light touch: Normal (except for right foot between digits 1 and 2 where she has reduced sensation (L5 distribution)) Motor Strength: 5/5: Left Arm, Right Arm, Left Leg, Right Leg (Some guarding due to pain, but she is able to exert full strenght in all limbs) Gait: Deferred CBCD WBC 6.7 K/mm3 (4.0-10.0) 07/26/18 06:45 RBC 3.78 M/mm3 (3.60-5.2) 07/26/18 06:45 Hgb 11.3 GM/dL (10.7-15.3) 07/26/18 06:45 Hct 33.9 % (32.4-45.2) 07/26/18 06:45 MCV 89.6 fl (80-96) 07/26/18 06:45 MCHC 33.4 g/dl (32.0-36.0) 07/26/18 06:45 RDW 18.6 % (11.6-15.6) H 07/26/18 06:45 Plt Count 338 K/MM3 (134-434) 07/26/18 06:45 MPV 7.0 fl (7.5-11.1) L 07/26/18 06:45 CMP Sodium 141 mmol/L (136-145) 07/26/18 06:45 Potassium 3.3 mmol/L (3.5-5.1) L 07/26/18 06:45 Chloride 104 mmol/L (98-107) 07/26/18 06:45 Carbon Dioxide 25 mmol/L (21-32) 07/26/18 06:45 Anion Gap 11 MMOL/L (8-16) 07/26/18 06:45 BUN 25 mg/dL (7-18) H 07/26/18 06:45 Creatinine 0.8 mg/dL (0.55-1.3) 07/26/18 06:45 Creat Clearance w eGFR > 60 (>60) 07/26/18 06:45 Calcium 8.8 mg/dL (8.5-10.1) 07/26/18 06:45 Total Bilirubin 1.4 mg/dL (0.2-1) H 07/26/18 06:45 AST 22 U/L (15-37) 07/26/18 06:45 ALT 15 U/L (13-61) 07/26/18 06:45 Alkaline Phosphatase 154 U/L (45-117) H 07/26/18 06:45 Total Protein 6.7 g/dl (6.4-8.2) 07/26/18 06:45 Albumin 3.4 g/dl (3.4-5.0) 07/26/18 06:45 Imaging - Results Cat Scan: Report Reviewed (L5/S1 Spondylosis, spondylolisthesis with associated foraminal stensosis (apparently previously noted on older films) Acute S2 and S1 fractures minimal to no dispalcement but some angling of S2.), Image Reviewed Plan: 83 yo PMH HTN, DM, Hysterectomy, pacemaker and stent 2017, L knee partial replacement, osteoporosis, multiple falls who fell 3 weeks ago and hurt her back. Seen by Dr. Jenkins during weekend coverage. Reportedly was taken to [facility] where a plane film of the lumbar spine showed sacral fracture and L5/S1 spondylolisthesis. She went home and although was in pain, was able to function until several days ago when she had without warning and apparent precipitant when she had acute worsening of her pain in the mid lower back, occasionally radiating down the inside of her leg, and at times noting numbness of the dorsum of her right foot. The pain became severe enough that she was unable to walk and she was confined to bed where if she stayed still she experienced no pain. Getting up was excruciating. 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 CT of lumbar spine completed and reviewed. Neurosurgery note from Dr. Clarence Ruff reviewed. Gabapentin 3 times a day started. Still with pain this AM and holding right lumbar flank with discomfort, though is able to move her lower extremities with strength. Discussed with her possible trial of muscle relaxant in hopes of providing some relief. Will add cyclobenzaprine to regiment. If this is not effective, then epidural steroid injections may be considered as documented by neurosurgery note. Patient has not had such procedures in the past but is amenable at this time. Agree with avoidance of surgical intervention at this time.
--- NOTE | 2018-07-27 09:54 | PN ---
Progress Note, Physician Chief Complaint: stable no new c/o - Current Medication List Current Medications: Active Medications Acetaminophen (Tylenol -) 650 mg PO Q6H PRN PRN Reason: PAIN Last Admin: 07/26/18 22:07 Dose: 650 mg Apixaban (Eliquis -) 5 mg PO BID [facility] Last Admin: 07/26/18 22:07 Dose: 5 mg Atorvastatin Calcium (Lipitor -) 20 mg PO HS [facility] Last Admin: 07/26/18 22:08 Dose: 20 mg Cyclobenzaprine HCl (Cyclobenzaprine Hcl) 5 mg PO TID [facility] Gabapentin (Neurontin -) 300 mg PO TID [facility] Last Admin: 07/27/18 06:59 Dose: 300 mg Insulin Aspart (Novolog Vial Sliding Scale -) 1 vial SQ BIDAC [facility]; Protocol Last Admin: 07/27/18 07:01 Dose: Not Given Metformin HCl (Glucophage -) 500 mg PO 0700 [facility] Last Admin: 07/27/18 07:00 Dose: 500 mg Metoprolol Succinate (Toprol Xl -) 50 mg PO DAILY [facility] Last Admin: 07/26/18 09:20 Dose: 50 mg Miscellaneous (Lidoderm Patch Removal) 1 each MC DAILY@2200 [facility] Last Admin: 07/26/18 22:10 Dose: 1 each Morphine Sulfate (Morphine Sulfate) 2 mg IVPUSH Q4H PRN PRN Reason: PAIN LEVEL 6-10 Last Admin: 07/27/18 05:43 Dose: 2 mg Potassium Chloride (K-Dur -) 20 meq PO DAILY [facility] Last Admin: 07/26/18 09:21 Dose: 20 meq Sertraline HCl (Zoloft -) 100 mg PO DAILY [facility] Last Admin: 07/26/18 09:20 Dose: 100 mg Verapamil HCl (Calan Sr -) 240 mg PO AM [facility] Last Admin: 07/27/18 07:00 Dose: 240 mg - Objective Vital Signs: Vital Signs Temperature 98.2 F 07/27/18 09:00 Pulse Rate 77 07/27/18 09:00 Respiratory Rate 20 07/27/18 09:00 Blood Pressure 142/94 07/27/18 09:00 O2 Sat by Pulse Oximetry (%) 95 07/26/18 21:00 Constitutional: Yes: No Distress, Calm Eyes: Yes: Conjunctiva Clear HENT: Yes: Atraumatic Neck: Yes: Supple Cardiovascular: Yes: Regular Rate and Rhythm Respiratory: Yes: CTA Bilaterally Gastrointestinal: Yes: Soft. No: Distention Genitourinary: No: CVA Tenderness - Left, CVA Tenderness - Right, Hematuria Musculoskeletal: No: Joint Stiffness, Joint Swelling Extremities: No: Cold, Cool, Cyanosis Edema: No Integumentary: No: Rash, Venous Stasis Changes Neurological: Yes: WNL, Alert, Oriented ...Motor Strength: WNL Psychiatric: Yes: WNL, Alert, Oriented. No: Agitated, Suicidal Ideation Labs: CBC, BMP 07/26/18 06:45 07/26/18 06:45 - ....Imaging Other: Report Reviewed Assessment/Plan 83 yo PMH HTN, DM, Hysterectomy, pacemaker and stent 2016, L knee partial replacement, osteoporosis, multiple falls, p/w worsening acute on chronic back pain w/ decreased sensation of dorsal R foot in the setting of recent witnessed mechanical fall, s/p mildly displaced frx of R superior and inferior pubic rami, anterolisthesis of L5 on S1, and focal anterior lower sacrum/coccyx nondisplaced frx. seen by neurology and neurosurgery - rec conservative tx PT rehab at SNF when stable DVT PFX pain control falls decubs aspiration PFX d/w pt and sister; d/w pt's PCP dr Nubia Mendoza
[2018-07-27] MEDS: SERTRALINE HCL 50 MG TABLET (FP) PO SCH (10:17)
[2018-07-27] MEDS: POTASSIUM CHLORIDE TABS 10 MEQ TABLET.ER (FP) PO SCH (10:17)
[2018-07-27] MEDS: APIXABAN 5 MG TABLET PO SCH ×2 (10:17→21:24)
[2018-07-27 11:45] LABS: URINE APPEARANCE SLCLOUDY; URINE BILIRUBIN NEGATIVE (<2.0 mg/dL); URINE COLOR AMBER; URINE GLUCOSE (UA) NEGATIVE (NEGATIVE); URINE KETONE NEGATIVE (NEGATIVE); URINE LEUK ESTERASE NEGATIVE (NEGATIVE); URINE NITRITE NEGATIVE (NEGATIVE); URINE PROTEIN 1+ (NEGATIVE); URINE UROBILINOGEN 4.0 E.U/dl mg/dL (0.2-1.0)
[2018-07-27 11:48] LABS: URINE BACTERIA MANY /hpf (NONE SEEN); URINE HYALINE CAST 2 /lpf; URINE MUCUS FEW
[2018-07-27] MEDS: CYCLOBENZAPRINE HCL 10 MG TABLET (FP) PO SCH ×2 (13:40→21:24)
[2018-07-27] MEDS: ATORVASTATIN CA 20 MG TABLET (FP) PO SCH (21:24)
[2018-07-27] MEDS: LIDOCAINE PATCH REMOVAL MC SCH (21:24)
[2018-07-28] MEDS: GABAPENTIN 300 MG CAPSULE (FP) PO SCH ×3 (05:40→22:23)
[2018-07-28] MEDS: CYCLOBENZAPRINE HCL 10 MG TABLET (FP) PO SCH ×3 (05:40→22:23)
[2018-07-28] MEDS: INSULIN SLIDING SCALE (NOVOLOG) 1 VIAL SQ SCH ×2 (06:18→16:25)
[2018-07-28] MEDS: metFORMIN HCL 500 MG TABLET (FP) PO SCH (06:44)
[2018-07-28] MEDS: VERAPAMIL HCL 240 MG E.R. TABLET (FP) PO SCH (06:44)
[2018-07-28 07:41] LABS: ANION GAP 10 MMOL/L (8-16); BLOOD UREA NITROGEN 25 mg/dL (7-18); CALCIUM 8.6 mg/dL (8.5-10.1); CHLORIDE 107 mmol/L (98-107); CO2 27 mmol/L (21-32); CREATININE 0.8 mg/dL (0.55-1.3); GLUCOSE,RANDOM 87 mg/dL (74-106); POTASSIUM 3.6 mmol/L (3.5-5.1); SODIUM 144 mmol/L (136-145)
--- NOTE | 2018-07-28 09:12 | PN ---
Progress Note (short form) - Note Progress Note: Neurology History of Present Illness: 83 yo PMH HTN, DM, Hysterectomy, pacemaker and stent 2017, L knee partial replacement, osteoporosis, multiple falls who fell 3 weeks ago and hurt her back. Seen by Dr. Jenkins during weekend coverage. Reportedly was taken to [facility] where a plane film of the lumbar spine showed sacral fracture and L5/S1 spondylolisthesis. She went home and although was in pain, was able to function until several days ago when she had without warning and apparent precipitant when she had acute worsening of her pain in the mid lower back, occasionally radiating down the inside of her leg, and at times noting numbness of the dorsum of her right foot. The pain became severe enough that she was unable to walk and she was confined to bed where if she stayed still she experienced no pain. Getting up was excruciating. 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 CT of lumbar spine completed and reviewed. Neurosurgery note from Dr. Clarence Ruff reviewed. Gabapentin 3 times a day started. Still with pain this AM and holding right lumbar flank with discomfort, though is able to move her lower extremities with strength. Cyclobenzaprine added and patient feels much better. Epidural steroid injections mentioned again today, patient feels medication has helped. Was sleeping prior to my arrival, seemed more comfortable. Plan is for short term rehab which she is reluctant toward but explained she may not be safe at home and is fall risk. She verbalized understanding, requested medications be continued. Active Medications Acetaminophen (Tylenol -) 650 mg PO Q6H PRN PRN Reason: PAIN Last Admin: 07/26/18 22:07 Dose: 650 mg Apixaban (Eliquis -) 5 mg PO BID [facility] Last Admin: 07/27/18 21:24 Dose: 5 mg Atorvastatin Calcium (Lipitor -) 20 mg PO HS [facility] Last Admin: 07/27/18 21:24 Dose: 20 mg Cyclobenzaprine HCl (Flexeril -) 5 mg PO TID [facility] Last Admin: 07/28/18 05:40 Dose: 5 mg Gabapentin (Neurontin -) 300 mg PO TID [facility] Last Admin: 07/28/18 05:40 Dose: 300 mg Insulin Aspart (Novolog Vial Sliding Scale -) 1 vial SQ BIDAC [facility]; Protocol Last Admin: 07/28/18 06:18 Dose: Not Given Metformin HCl (Glucophage -) 500 mg PO 0700 [facility] Last Admin: 07/28/18 06:44 Dose: 500 mg Metoprolol Succinate (Toprol Xl -) 50 mg PO DAILY [facility] Last Admin: 07/27/18 10:17 Dose: 50 mg Miscellaneous (Lidoderm Patch Removal) 1 each MC DAILY@2200 [facility] Last Admin: 07/27/18 21:24 Dose: 1 each Morphine Sulfate (Morphine Sulfate) 2 mg IVPUSH Q4H PRN PRN Reason: PAIN LEVEL 6-10 Last Admin: 07/27/18 10:21 Dose: 2 mg Potassium Chloride (K-Dur -) 20 meq PO DAILY [facility] Last Admin: 07/27/18 10:17 Dose: 20 meq Sertraline HCl (Zoloft -) 100 mg PO DAILY [facility] Last Admin: 07/27/18 10:17 Dose: 100 mg Verapamil HCl (Calan Sr -) 240 mg PO AM [facility] Last Admin: 07/28/18 06:44 Dose: 240 mg Physical Exam-Neuro Vital Signs: Vital Signs Period Temp Pulse Resp BP Sys/Webb Pulse Ox Last 24 Hr 97.9 F-98.8 F 70-75 20-20 116-140/73-88 96 Constitutional: Yes: Well Nourished, No Distress, Calm - Neuro Exam Level Of Consciousness: Yes: Alert, Oriented to Person, Oriented to Place ( Thinks that it is June.) Eyes: Yes: CALE, Other (EOMI) Speech: WNL Cranial Nerves II-XII Intact: Yes DTR's: 0 Left Achilles, 0 Right Achilles, 2+ Left Bicep, 2+ Right Bicep, 2+ Left Tricep, 2+ Right Tricep, 2+ Left Brachioradialis, 2+ Right Brachioradialis Babinski: Absent Response to light touch: Normal (except for right foot between digits 1 and 2 where she has reduced sensation (L5 distribution)) Motor Strength: 5/5: Left Arm, Right Arm, Left Leg, Right Leg (Some guarding due to pain, but she is able to exert full strenght in all limbs) Gait: Deferred CBCD WBC 6.7 K/mm3 (4.0-10.0) 07/26/18 06:45 RBC 3.78 M/mm3 (3.60-5.2) 07/26/18 06:45 Hgb 11.3 GM/dL (10.7-15.3) 07/26/18 06:45 Hct 33.9 % (32.4-45.2) 07/26/18 06:45 MCV 89.6 fl (80-96) 07/26/18 06:45 MCHC 33.4 g/dl (32.0-36.0) 07/26/18 06:45 RDW 18.6 % (11.6-15.6) H 07/26/18 06:45 Plt Count 338 K/MM3 (134-434) 07/26/18 06:45 MPV 7.0 fl (7.5-11.1) L 07/26/18 06:45 CMP Sodium 144 mmol/L (136-145) 07/28/18 06:30 Potassium 3.6 mmol/L (3.5-5.1) 07/28/18 06:30 Chloride 107 mmol/L (98-107) 07/28/18 06:30 Carbon Dioxide 27 mmol/L (21-32) 07/28/18 06:30 Anion Gap 10 MMOL/L (8-16) 07/28/18 06:30 BUN 25 mg/dL (7-18) H 07/28/18 06:30 Creatinine 0.8 mg/dL (0.55-1.3) 07/28/18 06:30 Creat Clearance w eGFR > 60 (>60) 07/28/18 06:30 Random Glucose 87 mg/dL (74-106) 07/28/18 06:30 Calcium 8.6 mg/dL (8.5-10.1) 07/28/18 06:30 Total Bilirubin 1.4 mg/dL (0.2-1) H 07/26/18 06:45 AST 22 U/L (15-37) 07/26/18 06:45 ALT 15 U/L (13-61) 07/26/18 06:45 Alkaline Phosphatase 154 U/L (45-117) H 07/26/18 06:45 Total Protein 6.7 g/dl (6.4-8.2) 07/26/18 06:45 Albumin 3.4 g/dl (3.4-5.0) 07/26/18 06:45 Imaging - Results Cat Scan: Report Reviewed (L5/S1 Spondylosis, spondylolisthesis with associated foraminal stensosis (apparently previously noted on older films) Acute S2 and S1 fractures minimal to no dispalcement but some angling of S2.), Image Reviewed Plan: 83 yo PMH HTN, DM, Hysterectomy, pacemaker and stent 2017, L knee partial replacement, osteoporosis, multiple falls who fell 3 weeks ago and hurt her back. Seen by Dr. Jenkins during weekend coverage. Reportedly was taken to [facility] where a plane film of the lumbar spine showed sacral fracture and L5/S1 spondylolisthesis. She went home and although was in pain, was able to function until several days ago when she had without warning and apparent precipitant when she had acute worsening of her pain in the mid lower back, occasionally radiating down the inside of her leg, and at times noting numbness of the dorsum of her right foot. The pain became severe enough that she was unable to walk and she was confined to bed where if she stayed still she experienced no pain. Getting up was excruciating. 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 CT of lumbar spine completed and reviewed. Neurosurgery note from Dr. Clarence Ruff reviewed. Gabapentin 3 times a day started. Added cyclobenzaprine to regiment with good relief. This should be continued if she goes to rehab or goes home. Physical therapy as tolerated recommended. Fall precautions, avoid sudden movement or bending.
[2018-07-28] MEDS: SERTRALINE HCL 50 MG TABLET (FP) PO SCH (09:38)
[2018-07-28] MEDS: APIXABAN 5 MG TABLET PO SCH ×2 (09:38→22:23)
[2018-07-28] MEDS: MORPHINE SULFATE 2 MG/ML VIAL IVPUSH PRN ×3 (09:38→22:24)
[2018-07-28] MEDS: POTASSIUM CHLORIDE TABS 10 MEQ TABLET.ER (FP) PO SCH (09:38)
--- NOTE | 2018-07-28 09:39 | DS ---
Physical Examination Vital Signs: Vital Signs Temperature 98.8 F 07/28/18 05:52 Pulse Rate 75 07/28/18 05:52 Respiratory Rate 20 07/28/18 05:52 Blood Pressure 116/73 07/28/18 05:52 O2 Sat by Pulse Oximetry (%) 96 07/27/18 22:00 Findings/Remarks: admitted s/p fall pelvic fracture still with pain on iv morphine seen by neuro and NS; started on flexeril and neurontin also d/w daughter at bedside Constitutional: Yes: No Distress, Calm Eyes: Yes: Conjunctiva Clear HENT: Yes: Atraumatic Neck: Yes: Supple Cardiovascular: Yes: Regular Rate and Rhythm Respiratory: Yes: CTA Bilaterally Gastrointestinal: Yes: Soft. No: Tenderness Renal/: No: CVA Tenderness - Left, CVA Tenderness - Right Musculoskeletal: No: Joint Stiffness, Joint Swelling Extremities: No: Cold, Cool, Cyanosis Edema: No Integumentary: No: Rash, Venous Stasis Changes Neurological: Yes: WNL, Alert, Oriented ...Motor Strength: WNL Psychiatric: Yes: WNL, Alert, Oriented. No: Agitated, Suicidal Ideation Labs: CBC, BMP 07/26/18 06:45 07/28/18 06:30 Discharge Summary Reason For Visit: Back Pain, Unable to walk Current Active Problems Anterolisthesis (Acute) Back pain (Acute) Diabetes mellitus (Acute) Fall (Acute) Hypertension, uncontrolled (Acute) Impaired gait (Acute) Lumbar radiculopathy, chronic (Acute) Neuropathy (Acute) Pelvic fracture (Acute) Sensory abnormality of lumbar dermatome distribution (Acute) Vertebral fracture (Acute) Procedures: Principal: admitted with s/p fall pelvic fracture neuropathy, intractable pain Other Procedures: seen by neurology and neurosurgery, no surgical interevntion, started on pain meds morphine then switch to percocet, flexeril and neurontin Hospital Course: pain control; PT rehab; falls and decubs pfx d/w pt and staff d/w daughter at bedside Condition: Stable - Instructions Diet, Activity, Other Instructions: f/u PCP and neurology in 1 week after DC from SNF; PT rehab; falls decubs aspiration PFX Referrals: Shayla Nguyen MD [Primary Care Provider] - Adrian Briceño MD [Staff Physician] - Disposition: SNF FACILITY - Home Medications Comprehensive Discharge Medication List: Ambulatory Orders Metformin HCl [Glucophage] 500 mg PO DAILY 01/01/12 Verapamil HCl ER [Calan Sr] 240 mg PO AM 01/01/12 Apixaban [Eliquis -] 5 mg PO BID 07/24/18 Atorvastatin Ca [Lipitor] 20 mg NR 07/24/18 Metoprolol Succinate 50 mg PO DAILY 07/24/18 Sertraline HCl [Zoloft] 100 mg PO DAILY 07/24/18
[2018-07-28] MEDS: LACTOBACILLUS ACIDOPHILUS 1 TABLET PO SCH (12:42)
[2018-07-28] MEDS ORDERED: PT OWN MED DRAWER 7, Y5N ONE ×2 (13:12→16:58)
[2018-07-28] MEDS: AMOXICILLIN 500 MG CAPSULE (FP) PO SCH ×2 (16:30→22:24)
[2018-07-28] MEDS: ATORVASTATIN CA 20 MG TABLET (FP) PO SCH (22:23)
[2018-07-29] MEDS: metFORMIN HCL 500 MG TABLET (FP) PO SCH (06:56)
[2018-07-29] MEDS: GABAPENTIN 300 MG CAPSULE (FP) PO SCH ×3 (06:56→22:47)
[2018-07-29] MEDS: AMOXICILLIN 500 MG CAPSULE (FP) PO SCH ×3 (06:56→22:48)
[2018-07-29] MEDS: VERAPAMIL HCL 240 MG E.R. TABLET (FP) PO SCH (06:56)
[2018-07-29] MEDS: CYCLOBENZAPRINE HCL 10 MG TABLET (FP) PO SCH ×4 (06:56→22:46)
[2018-07-29] MEDS: INSULIN SLIDING SCALE (NOVOLOG) 1 VIAL SQ SCH ×2 (06:57→16:18)
--- NOTE | 2018-07-29 08:56 | PN ---
Progress Note (short form) - Note Progress Note: Neurology History of Present Illness: 83 yo PMH HTN, DM, Hysterectomy, pacemaker and stent 2017, L knee partial replacement, osteoporosis, multiple falls who fell 3 weeks ago and hurt her back. Seen by Dr. Jenkins during weekend coverage. Reportedly was taken to [facility] where a plane film of the lumbar spine showed sacral fracture and L5/S1 spondylolisthesis. She went home and although was in pain, was able to function until several days ago when she had without warning and apparent precipitant when she had acute worsening of her pain in the mid lower back, occasionally radiating down the inside of her leg, and at times noting numbness of the dorsum of her right foot. The pain became severe enough that she was unable to walk and she was confined to bed where if she stayed still she experienced no pain. Getting up was excruciating. 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 CT of lumbar spine completed and reviewed. Neurosurgery note from Dr. Clarence Ruff reviewed. Gabapentin 3 times a day started. Still with pain this AM and holding right lumbar flank with discomfort, though is able to move her lower extremities with strength. Cyclobenzaprine added and patient feels much better. Epidural steroid injections mentioned but patient not interested. States medication has helped her recover and denies having significant pain at this time. Active Medications Acetaminophen (Tylenol -) 650 mg PO Q6H PRN PRN Reason: PAIN Last Admin: 07/26/18 22:07 Dose: 650 mg Amoxicillin (Amoxicillin -) 500 mg PO TID [facility] Last Admin: 07/29/18 06:56 Dose: 500 mg Apixaban (Eliquis -) 5 mg PO BID [facility] Last Admin: 07/28/18 22:23 Dose: 5 mg Atorvastatin Calcium (Lipitor -) 20 mg PO HS [facility] Last Admin: 07/28/18 22:23 Dose: 20 mg Cyclobenzaprine HCl (Flexeril -) 5 mg PO TID [facility] Last Admin: 07/29/18 06:56 Dose: 5 mg Gabapentin (Neurontin -) 300 mg PO TID [facility] Last Admin: 07/29/18 06:56 Dose: 300 mg Insulin Aspart (Novolog Vial Sliding Scale -) 1 vial SQ BIDAC [facility]; Protocol Last Admin: 07/29/18 06:57 Dose: Not Given Lactobacillus Acidophilus (Bacid -) 1 tab PO DAILY [facility] Last Admin: 07/28/18 12:42 Dose: 1 tab Metformin HCl (Glucophage -) 500 mg PO 0700 [facility] Last Admin: 07/29/18 06:56 Dose: 500 mg Metoprolol Succinate (Toprol Xl -) 50 mg PO DAILY [facility] Last Admin: 07/28/18 09:38 Dose: 50 mg Morphine Sulfate (Morphine Sulfate) 2 mg IVPUSH Q4H PRN PRN Reason: PAIN LEVEL 6-10 Last Admin: 07/28/18 22:24 Dose: 2 mg Potassium Chloride (K-Dur -) 20 meq PO DAILY [facility] Last Admin: 07/28/18 09:38 Dose: 20 meq Sertraline HCl (Zoloft -) 100 mg PO DAILY [facility] Last Admin: 07/28/18 09:38 Dose: 100 mg Verapamil HCl (Calan Sr -) 240 mg PO AM [facility] Last Admin: 07/29/18 06:56 Dose: 240 mg Physical Exam-Neuro Vital Signs: Vital Signs Period Temp Pulse Resp BP Sys/Webb Pulse Ox Last 24 Hr 98.0 F-98.8 F 75-84 20-20 128-153/75-99 Constitutional: Yes: Well Nourished, No Distress, Calm - Neuro Exam Level Of Consciousness: Yes: Alert, Oriented to Person, Oriented to Place ( Thinks that it is June.) Eyes: Yes: CALE, Other (EOMI) Speech: WNL Cranial Nerves II-XII Intact: Yes DTR's: 0 Left Achilles, 0 Right Achilles, 2+ Left Bicep, 2+ Right Bicep, 2+ Left Tricep, 2+ Right Tricep, 2+ Left Brachioradialis, 2+ Right Brachioradialis Babinski: Absent Response to light touch: Normal (except for right foot between digits 1 and 2 where she has reduced sensation (L5 distribution)) Motor Strength: 5/5: Left Arm, Right Arm, Left Leg, Right Leg (Some guarding due to pain, but she is able to exert full strenght in all limbs) Gait: Deferred CBCD WBC 6.7 K/mm3 (4.0-10.0) 07/26/18 06:45 RBC 3.78 M/mm3 (3.60-5.2) 07/26/18 06:45 Hgb 11.3 GM/dL (10.7-15.3) 07/26/18 06:45 Hct 33.9 % (32.4-45.2) 07/26/18 06:45 MCV 89.6 fl (80-96) 07/26/18 06:45 MCHC 33.4 g/dl (32.0-36.0) 07/26/18 06:45 RDW 18.6 % (11.6-15.6) H 07/26/18 06:45 Plt Count 338 K/MM3 (134-434) 07/26/18 06:45 MPV 7.0 fl (7.5-11.1) L 07/26/18 06:45 CMP Sodium 144 mmol/L (136-145) 07/28/18 06:30 Potassium 3.6 mmol/L (3.5-5.1) 07/28/18 06:30 Chloride 107 mmol/L (98-107) 07/28/18 06:30 Carbon Dioxide 27 mmol/L (21-32) 07/28/18 06:30 Anion Gap 10 MMOL/L (8-16) 07/28/18 06:30 BUN 25 mg/dL (7-18) H 07/28/18 06:30 Creatinine 0.8 mg/dL (0.55-1.3) 07/28/18 06:30 Creat Clearance w eGFR > 60 (>60) 07/28/18 06:30 Random Glucose 87 mg/dL (74-106) 07/28/18 06:30 Calcium 8.6 mg/dL (8.5-10.1) 07/28/18 06:30 Total Bilirubin 1.4 mg/dL (0.2-1) H 07/26/18 06:45 AST 22 U/L (15-37) 07/26/18 06:45 ALT 15 U/L (13-61) 07/26/18 06:45 Alkaline Phosphatase 154 U/L (45-117) H 07/26/18 06:45 Total Protein 6.7 g/dl (6.4-8.2) 07/26/18 06:45 Albumin 3.4 g/dl (3.4-5.0) 07/26/18 06:45 Imaging - Results Cat Scan: Report Reviewed (L5/S1 Spondylosis, spondylolisthesis with associated foraminal stensosis (apparently previously noted on older films) Acute S2 and S1 fractures minimal to no dispalcement but some angling of S2.), Image Reviewed Plan: 83 yo PMH HTN, DM, Hysterectomy, pacemaker and stent 2017, L knee partial replacement, osteoporosis, multiple falls who fell 3 weeks ago and hurt her back. Seen by Dr. Jenkins during weekend coverage. Reportedly was taken to [facility] where a plane film of the lumbar spine showed sacral fracture and L5/S1 spondylolisthesis. She went home and although was in pain, was able to function until several days ago when she had without warning and apparent precipitant when she had acute worsening of her pain in the mid lower back, occasionally radiating down the inside of her leg, and at times noting numbness of the dorsum of her right foot. The pain became severe enough that she was unable to walk and she was confined to bed where if she stayed still she experienced no pain. Getting up was excruciating. 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 CT of lumbar spine completed and reviewed. Neurosurgery note from Dr. Clarence Ruff reviewed. Gabapentin 3 times a day started. Added cyclobenzaprine to regiment with good relief. This should be continued if she goes to rehab or goes home. Physical therapy as tolerated recommended. Fall precautions, avoid sudden movement or bending. Much improved at this time.
[2018-07-29] MEDS: POTASSIUM CHLORIDE TABS 10 MEQ TABLET.ER (FP) PO SCH (09:35)
[2018-07-29] MEDS: APIXABAN 5 MG TABLET PO SCH ×2 (09:35→22:47)
[2018-07-29] MEDS: LACTOBACILLUS ACIDOPHILUS 1 TABLET PO SCH (09:35)
[2018-07-29] MEDS: SERTRALINE HCL 50 MG TABLET (FP) PO SCH (09:35)
--- NOTE | 2018-07-29 12:07 | PN ---
Progress Note, Physician Chief Complaint: still in a lot of pelvic pain received iv morphine and neurontin flexeril earlier, now sleepy but arousable; son at bedside; d/w pt and son and CM staff if able to control the pain transfer to [facility] - Current Medication List Current Medications: Active Medications Acetaminophen (Tylenol -) 650 mg PO Q6H PRN PRN Reason: PAIN Last Admin: 07/26/18 22:07 Dose: 650 mg Amoxicillin (Amoxicillin -) 500 mg PO TID [facility] Last Admin: 07/29/18 06:56 Dose: 500 mg Apixaban (Eliquis -) 5 mg PO BID [facility] Last Admin: 07/29/18 09:35 Dose: 5 mg Atorvastatin Calcium (Lipitor -) 20 mg PO HS [facility] Last Admin: 07/28/18 22:23 Dose: 20 mg Cyclobenzaprine HCl (Flexeril -) 5 mg PO TID [facility] Last Admin: 07/29/18 06:56 Dose: 5 mg Docusate Sodium (Colace -) 100 mg PO DAILY [facility] Gabapentin (Neurontin -) 300 mg PO TID [facility] Last Admin: 07/29/18 06:56 Dose: 300 mg Insulin Aspart (Novolog Vial Sliding Scale -) 1 vial SQ BIDAC [facility]; Protocol Last Admin: 07/29/18 06:57 Dose: Not Given Lactobacillus Acidophilus (Bacid -) 1 tab PO DAILY [facility] Last Admin: 07/29/18 09:35 Dose: 1 tab Metformin HCl (Glucophage -) 500 mg PO 0700 [facility] Last Admin: 07/29/18 06:56 Dose: 500 mg Metoprolol Succinate (Toprol Xl -) 50 mg PO DAILY [facility] Last Admin: 07/29/18 09:35 Dose: 50 mg Oxycodone HCl (Roxicodone -) 5 mg PO Q4H PRN PRN Reason: PAIN LEVEL 6-10 Potassium Chloride (K-Dur -) 20 meq PO DAILY [facility] Last Admin: 07/29/18 09:35 Dose: 20 meq Sertraline HCl (Zoloft -) 100 mg PO DAILY [facility] Last Admin: 07/29/18 09:35 Dose: 100 mg Verapamil HCl (Calan Sr -) 240 mg PO AM [facility] Last Admin: 07/29/18 06:56 Dose: 240 mg - Objective Vital Signs: Vital Signs Temperature 98.8 F 07/29/18 06:00 Pulse Rate 84 07/29/18 06:00 Respiratory Rate 20 07/29/18 06:00 Blood Pressure 139/75 07/29/18 06:00 O2 Sat by Pulse Oximetry (%) 96 07/27/18 22:00 Constitutional: Yes: No Distress, Calm Eyes: Yes: Conjunctiva Clear HENT: Yes: Atraumatic Neck: Yes: Supple Cardiovascular: Yes: Regular Rate and Rhythm Respiratory: Yes: CTA Bilaterally Gastrointestinal: Yes: Soft. No: Distention, Tenderness Genitourinary: No: CVA Tenderness - Left, CVA Tenderness - Right Musculoskeletal: No: Joint Stiffness, Joint Swelling Extremities: No: Cold, Cool, Cyanosis Edema: No Integumentary: No: Rash, Venous Stasis Changes Neurological: Yes: WNL, Alert, Oriented ...Motor Strength: WNL Psychiatric: Yes: WNL, Alert, Oriented. No: Agitated, Suicidal Ideation Labs: CBC, BMP 07/26/18 06:45 07/28/18 06:30 - ....Imaging Other: Report Reviewed Assessment/Plan 83 yo PMH HTN, DM, Hysterectomy, pacemaker and stent 2017, L knee partial replacement, osteoporosis, multiple falls, p/w worsening acute on chronic back pain w/ decreased sensation of dorsal R foot in the setting of recent witnessed mechanical fall, s/p mildly displaced frx of R superior and inferior pubic rami, anterolisthesis of L5 on S1, and focal anterior lower sacrum/coccyx nondisplaced frx. seen by neurology and neurosurgery - rec conservative tx PT rehab at SNF when stable DVT PFX pain control falls decubs aspiration PFX transfer to [facility] when pain better controlled d/w pt and son, d/w pt's PCP dr Nubia Mendoza
[2018-07-29] MEDS ORDERED: PT OWN MED DRAWER 7, Y5N ONE (13:32)
[2018-07-29] MEDS: DOCUSATE SODIUM 100 MG CAPSULE (FP) PO SCH (13:34)
[2018-07-29] MEDS: oxyCODONE HCL 5 MG TABLET PO PRN ×2 (13:39→22:47)
[2018-07-29] MEDS: ATORVASTATIN CA 20 MG TABLET (FP) PO SCH (22:46)
[2018-07-30] MEDS: AMOXICILLIN 500 MG CAPSULE (FP) PO SCH (06:11)
[2018-07-30] MEDS: VERAPAMIL HCL 240 MG E.R. TABLET (FP) PO SCH (06:11)
[2018-07-30] MEDS: oxyCODONE HCL 5 MG TABLET PO PRN ×2 (06:11→12:50)
[2018-07-30] MEDS: GABAPENTIN 300 MG CAPSULE (FP) PO SCH (06:11)
[2018-07-30] MEDS: metFORMIN HCL 500 MG TABLET (FP) PO SCH (06:12)
[2018-07-30] MEDS: CYCLOBENZAPRINE HCL 10 MG TABLET (FP) PO SCH (06:12)
[2018-07-30] MEDS: INSULIN SLIDING SCALE (NOVOLOG) 1 VIAL SQ SCH (06:13)
[2018-07-30 07:30] LABS: EOS % 3.6 % (0-4.5); HEMATOCRIT 34.1 % (32.4-45.2); HEMOGLOBIN 11.1 GM/dL (10.7-15.3); LYMPH % 17.5 % (8-40); MCH 29.9 pg (25.7-33.7); MCHC 32.7 g/dl (32.0-36.0); MEAN CELL VOLUME 91.7 fl (80-96); MEAN PLT VOLUME 7.9 fl (7.5-11.1); MONO % 10.5 % (3.8-10.2); NEUT % 67.4 % (42.8-82.8); PLATELET COUNT 255 K/MM3 (134-434); RBC 3.72 M/mm3 (3.60-5.2); RDW 18.6 % (11.6-15.6); WHITE BLOOD COUNT 5.6 K/mm3 (4.0-10.0)
[2018-07-30 08:11] LABS: ALK PHOS 134 U/L (45-117); ANION GAP 9 MMOL/L (8-16); BILIRUBIN,TOTAL 0.8 mg/dL (0.2-1); BLOOD UREA NITROGEN 24 mg/dL (7-18); CALCIUM 8.6 mg/dL (8.5-10.1); CHLORIDE 108 mmol/L (98-107); CO2 25 mmol/L (21-32); CREATININE 0.8 mg/dL (0.55-1.3); GLUCOSE,RANDOM 87 mg/dL (74-106); POTASSIUM 4.1 mmol/L (3.5-5.1); SGOT/AST 19 U/L (15-37); SGPT/ALT 15 U/L (13-61); SODIUM 142 mmol/L (136-145); TOT PROT 5.9 g/dl (6.4-8.2)
[2018-07-30 08:49] VITALS: BP 122/78; PULSE 74; TEMP 97.5
[2018-07-30] MEDS: LACTOBACILLUS ACIDOPHILUS 1 TABLET PO SCH (09:02)
[2018-07-30] MEDS: SERTRALINE HCL 50 MG TABLET (FP) PO SCH (09:03)
[2018-07-30] MEDS: APIXABAN 5 MG TABLET PO SCH (09:03)
[2018-07-30] MEDS: ACETAMINOPHEN 325 MG TABLET (FP) PO PRN (09:03)
[2018-07-30] MEDS: POTASSIUM CHLORIDE TABS 10 MEQ TABLET.ER (FP) PO SCH (09:03)
[2018-07-30] MEDS: DOCUSATE SODIUM 100 MG CAPSULE (FP) PO SCH (09:04)
--- NOTE | 2018-07-30 09:20 | PN ---
Progress Note (short form) - Note Progress Note: Neurology History of Present Illness: 83 yo PMH HTN, DM, Hysterectomy, pacemaker and stent 2017, L knee partial replacement, osteoporosis, multiple falls who fell 3 weeks ago and hurt her back. Seen by Dr. Jenkins during weekend coverage. Reportedly was taken to [facility] where a plane film of the lumbar spine showed sacral fracture and L5/S1 spondylolisthesis. She went home and although was in pain, was able to function until several days ago when she had without warning and apparent precipitant when she had acute worsening of her pain in the mid lower back, occasionally radiating down the inside of her leg, and at times noting numbness of the dorsum of her right foot. The pain became severe enough that she was unable to walk and she was confined to bed where if she stayed still she experienced no pain. Getting up was excruciating. 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 CT of lumbar spine completed and reviewed. Neurosurgery note from Dr. Clarence Ruff reviewed. Gabapentin 3 times a day started. Cyclobenzaprine added and patient feels much better. Epidural steroid injections mentioned but patient not interested. States medication has helped her recover, some increased pain this AM, awaiting morning meds. Still much better than when she was admitted, more mobility. Active Medications Acetaminophen (Tylenol -) 650 mg PO Q6H PRN PRN Reason: PAIN Last Admin: 07/30/18 09:03 Dose: 650 mg Amoxicillin (Amoxicillin -) 500 mg PO TID [facility] Last Admin: 07/30/18 06:11 Dose: 500 mg Apixaban (Eliquis -) 5 mg PO BID [facility] Last Admin: 07/30/18 09:03 Dose: 5 mg Atorvastatin Calcium (Lipitor -) 20 mg PO HS [facility] Last Admin: 07/29/18 22:46 Dose: 20 mg Cyclobenzaprine HCl (Flexeril -) 5 mg PO TID [facility] Last Admin: 07/30/18 06:12 Dose: 5 mg Docusate Sodium (Colace -) 100 mg PO DAILY [facility] Last Admin: 07/30/18 09:04 Dose: 100 mg Gabapentin (Neurontin -) 300 mg PO TID [facility] Last Admin: 07/30/18 06:11 Dose: 300 mg Insulin Aspart (Novolog Vial Sliding Scale -) 1 vial SQ BIDAC [facility]; Protocol Last Admin: 07/30/18 06:13 Dose: Not Given Lactobacillus Acidophilus (Bacid -) 1 tab PO DAILY [facility] Last Admin: 07/30/18 09:02 Dose: 1 tab Metformin HCl (Glucophage -) 500 mg PO 0700 [facility] Last Admin: 07/30/18 06:12 Dose: 500 mg Metoprolol Succinate (Toprol Xl -) 50 mg PO DAILY [facility] Last Admin: 07/30/18 09:02 Dose: 50 mg Oxycodone HCl (Roxicodone -) 5 mg PO Q4H PRN PRN Reason: PAIN LEVEL 6-10 Last Admin: 07/30/18 06:11 Dose: 5 mg Potassium Chloride (K-Dur -) 20 meq PO DAILY [facility] Last Admin: 07/30/18 09:03 Dose: 20 meq Sertraline HCl (Zoloft -) 100 mg PO DAILY [facility] Last Admin: 07/30/18 09:03 Dose: 100 mg Verapamil HCl (Calan Sr -) 240 mg PO AM [facility] Last Admin: 07/30/18 06:11 Dose: 240 mg Physical Exam-Neuro Vital Signs: Vital Signs Period Temp Pulse Resp BP Sys/Webb Pulse Ox Last 24 Hr 97.5 F-99.2 F 70-85 20-20 122-137/60-88 96 Constitutional: Yes: Well Nourished, No Distress, Calm - Neuro Exam Level Of Consciousness: Yes: Alert, Oriented to Person, Oriented to Place ( Thinks that it is June.) Eyes: Yes: CALE, Other (EOMI) Speech: WNL Cranial Nerves II-XII Intact: Yes DTR's: 0 Left Achilles, 0 Right Achilles, 2+ Left Bicep, 2+ Right Bicep, 2+ Left Tricep, 2+ Right Tricep, 2+ Left Brachioradialis, 2+ Right Brachioradialis Babinski: Absent Response to light touch: Normal (except for right foot between digits 1 and 2 where she has reduced sensation (L5 distribution)) Motor Strength: 5/5: Left Arm, Right Arm, Left Leg, Right Leg (Some guarding due to pain, but she is able to exert full strenght in all limbs) Gait: Deferred CBCD WBC 6.7 K/mm3 (4.0-10.0) 07/26/18 06:45 RBC 3.78 M/mm3 (3.60-5.2) 07/26/18 06:45 Hgb 11.3 GM/dL (10.7-15.3) 07/26/18 06:45 Hct 33.9 % (32.4-45.2) 07/26/18 06:45 MCV 89.6 fl (80-96) 07/26/18 06:45 MCHC 33.4 g/dl (32.0-36.0) 07/26/18 06:45 RDW 18.6 % (11.6-15.6) H 07/26/18 06:45 Plt Count 338 K/MM3 (134-434) 07/26/18 06:45 MPV 7.0 fl (7.5-11.1) L 07/26/18 06:45 CMP Sodium 144 mmol/L (136-145) 07/28/18 06:30 Potassium 3.6 mmol/L (3.5-5.1) 07/28/18 06:30 Chloride 107 mmol/L (98-107) 07/28/18 06:30 Carbon Dioxide 27 mmol/L (21-32) 07/28/18 06:30 Anion Gap 10 MMOL/L (8-16) 07/28/18 06:30 BUN 25 mg/dL (7-18) H 07/28/18 06:30 Creatinine 0.8 mg/dL (0.55-1.3) 07/28/18 06:30 Creat Clearance w eGFR > 60 (>60) 07/28/18 06:30 Random Glucose 87 mg/dL (74-106) 07/28/18 06:30 Calcium 8.6 mg/dL (8.5-10.1) 07/28/18 06:30 Total Bilirubin 1.4 mg/dL (0.2-1) H 07/26/18 06:45 AST 22 U/L (15-37) 07/26/18 06:45 ALT 15 U/L (13-61) 07/26/18 06:45 Alkaline Phosphatase 154 U/L (45-117) H 07/26/18 06:45 Total Protein 6.7 g/dl (6.4-8.2) 07/26/18 06:45 Albumin 3.4 g/dl (3.4-5.0) 07/26/18 06:45 Imaging - Results Cat Scan: Report Reviewed (L5/S1 Spondylosis, spondylolisthesis with associated foraminal stensosis (apparently previously noted on older films) Acute S2 and S1 fractures minimal to no dispalcement but some angling of S2.), Image Reviewed Plan: 83 yo PMH HTN, DM, Hysterectomy, pacemaker and stent 2017, L knee partial replacement, osteoporosis, multiple falls who fell 3 weeks ago and hurt her back. Seen by Dr. Jenkins during weekend coverage. Reportedly was taken to [facility] where a plane film of the lumbar spine showed sacral fracture and L5/S1 spondylolisthesis. She went home and although was in pain, was able to function until several days ago when she had without warning and apparent precipitant when she had acute worsening of her pain in the mid lower back, occasionally radiating down the inside of her leg, and at times noting numbness of the dorsum of her right foot. The pain became severe enough that she was unable to walk and she was confined to bed where if she stayed still she experienced no pain. Getting up was excruciating. 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 CT of lumbar spine completed and reviewed. Neurosurgery note from Dr. Clarence Ruff reviewed. Gabapentin 3 times a day started. Added cyclobenzaprine to regiment with good relief. This should be continued if she goes to rehab or goes home. Physical therapy as tolerated recommended. Fall precautions, avoid sudden movement or bending. Much improved at this time. 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 Neurologically stable.
--- NOTE | 2018-07-30 09:33 | PN ---
Progress Note, Physician Chief Complaint: in bed awake alert had BM no N/V/abdominal pain; feels better on oxycodone, less back and pain legs labs OK d/w pt and staff OK to RC to SNF, d/w PCP dr Mendoza see DC summary 07/28 - Current Medication List Current Medications: Active Medications Acetaminophen (Tylenol -) 650 mg PO Q6H PRN PRN Reason: PAIN Last Admin: 07/30/18 09:03 Dose: 650 mg Amoxicillin (Amoxicillin -) 500 mg PO TID [facility] Last Admin: 07/30/18 06:11 Dose: 500 mg Apixaban (Eliquis -) 5 mg PO BID [facility] Last Admin: 07/30/18 09:03 Dose: 5 mg Atorvastatin Calcium (Lipitor -) 20 mg PO HS [facility] Last Admin: 07/29/18 22:46 Dose: 20 mg Cyclobenzaprine HCl (Flexeril -) 5 mg PO TID [facility] Last Admin: 07/30/18 06:12 Dose: 5 mg Docusate Sodium (Colace -) 100 mg PO DAILY [facility] Last Admin: 07/30/18 09:04 Dose: 100 mg Gabapentin (Neurontin -) 300 mg PO TID [facility] Last Admin: 07/30/18 06:11 Dose: 300 mg Insulin Aspart (Novolog Vial Sliding Scale -) 1 vial SQ BIDAC [facility]; Protocol Last Admin: 07/30/18 06:13 Dose: Not Given Lactobacillus Acidophilus (Bacid -) 1 tab PO DAILY [facility] Last Admin: 07/30/18 09:02 Dose: 1 tab Metformin HCl (Glucophage -) 500 mg PO 0700 [facility] Last Admin: 07/30/18 06:12 Dose: 500 mg Metoprolol Succinate (Toprol Xl -) 50 mg PO DAILY [facility] Last Admin: 07/30/18 09:02 Dose: 50 mg Oxycodone HCl (Roxicodone -) 5 mg PO Q4H PRN PRN Reason: PAIN LEVEL 6-10 Last Admin: 07/30/18 06:11 Dose: 5 mg Potassium Chloride (K-Dur -) 20 meq PO DAILY [facility] Last Admin: 07/30/18 09:03 Dose: 20 meq Sertraline HCl (Zoloft -) 100 mg PO DAILY [facility] Last Admin: 07/30/18 09:03 Dose: 100 mg Verapamil HCl (Calan Sr -) 240 mg PO AM [facility] Last Admin: 07/30/18 06:11 Dose: 240 mg - Objective Vital Signs: Vital Signs Temperature 97.5 F L 07/30/18 08:48 Pulse Rate 74 07/30/18 08:48 Respiratory Rate 20 07/30/18 08:48 Blood Pressure 122/78 07/30/18 08:48 O2 Sat by Pulse Oximetry (%) 96 07/29/18 21:00 Constitutional: Yes: No Distress, Calm Eyes: Yes: Conjunctiva Clear HENT: Yes: Atraumatic Neck: Yes: Supple Cardiovascular: Yes: Regular Rate and Rhythm Respiratory: Yes: CTA Bilaterally Gastrointestinal: Yes: Soft. No: Distention Genitourinary: No: Hematuria Musculoskeletal: No: Joint Stiffness, Joint Swelling Extremities: No: Cold, Cool, Cyanosis Edema: No Integumentary: No: Rash, Venous Stasis Changes Neurological: Yes: WNL, Alert, Oriented ...Motor Strength: WNL Psychiatric: Yes: WNL, Alert, Oriented. No: Agitated, Suicidal Ideation Labs: CBC, BMP 07/30/18 06:30 07/30/18 06:30 - ....Imaging Other: Report Reviewed Assessment/Plan 83 yo PMH HTN, DM, Hysterectomy, pacemaker and stent 2017, L knee partial replacement, osteoporosis, multiple falls, p/w worsening acute on chronic back pain w/ decreased sensation of dorsal R foot in the setting of recent witnessed mechanical fall, s/p mildly displaced frx of R superior and inferior pubic rami, anterolisthesis of L5 on S1, and focal anterior lower sacrum/coccyx nondisplaced frx. seen by neurology and neurosurgery - rec conservative tx PT rehab at [facility] DVT PFX pain control falls decubs aspiration [facility] staff d/w pt's PCP dr Nubia Mendoza
== END 2018-07-30 14:22 | DRG 552 ==
LOC: JER 13:13 → JERBED 16:30 → J6S 18:27
PROVIDERS: ADMIT Specialist; ATTEND Specialist
DX: S32.10XA Unspecified fracture of sacrum, initial encounter for closed fracture (principal); S32.511A Fracture of superior rim of right pubis, initial encounter for closed fracture; I25.10 Atherosclerotic heart disease of native coronary artery without angina pectoris; I10 Essential (primary) hypertension; E78.5 Hyperlipidemia, unspecified; E11.42 Type 2 diabetes mellitus with diabetic polyneuropathy; R20.8 Other disturbances of skin sensation; M43.10 Spondylolisthesis, site unspecified; R26.9 Unspecified abnormalities of gait and mobility; M54.16 Radiculopathy, lumbar region; M54.41 Lumbago with sciatica, right side; M48.07 Spinal stenosis, lumbosacral region; M43.17 Spondylolisthesis, lumbosacral region; E87.6 Hypokalemia; M81.0 Age-related osteoporosis without current pathological fracture; W18.30XA Fall on same level, unspecified, initial encounter; Y92.098 Other place in other non-institutional residence as the place of occurrence of the external cause; Z87.891 Personal history of nicotine dependence; Z95.5 Presence of coronary angioplasty implant and graft; Z96.652 Presence of left artificial knee joint
CPT/HCPCS: 36415; 71045-TC-FY; 72131-TC; 80048; 80053; 81003; 81015; 82962; 85025; 85027; 87086; 87186; 90688; 93005; 93010; 97116-GP; 97162-GP; 99283-25; G0008

== ENCOUNTER 2018-09-20 12:24 | Inpatient (IN) | payer BC, OTHER ==
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
[2018-09-20] MEDS ORDERED: morphine CARPU-JECT 2 MG/1 ML DISP.SYRIN IVPUSH ONE (13:12)
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
[2018-09-20] MEDS ORDERED: MORPHINE SULFATE 2 MG/ML VIAL ONE (13:24)
[2018-09-20] MEDS ORDERED: ACETAMINOPHEN 325 MG TABLET (FP) PO PRN ×2 (14:39→21:24)
[2018-09-20] MEDS ORDERED: MORPHINE SULFATE 2 MG/ML VIAL IVPUSH PRN (14:46)
[2018-09-20] MEDS ORDERED: morphine SULFATE 4 MG/ML VIAL ONE (15:17)
[2018-09-20] MEDS ORDERED: morphine CARPU-JECT 4 MG/1 ML DISP.SYRIN IVPUSH ONE (15:22)
[2018-09-20 15:35] LABS: BASO % 0.7 % (0-2.0); EOS % 1.3 % (0-4.5); HEMATOCRIT 35.5 % (32.4-45.2); HEMOGLOBIN 11.4 GM/dL (10.7-15.3); LYMPH % 12.5 % (8-40); MCHC 32.1 g/dl (32.0-36.0); MEAN CELL VOLUME 93.4 fl (80-96); MEAN PLT VOLUME 7.7 fl (7.5-11.1); NEUT % 79.5 % (42.8-82.8); PLATELET COUNT 265 K/MM3 (134-434); RDW 17.5 % (11.6-15.6); WHITE BLOOD COUNT 8.8 K/mm3 (4.0-10.0)
[2018-09-20 15:48] LABS: INR 1.77 (0.83-1.09)
[2018-09-20 15:51] LABS: ACTIVATED PTT 31.1 SECONDS (25.2-36.5)
[2018-09-20 16:25] LABS: ALBUMIN 3.4 g/dl (3.4-5.0); ALK PHOS 153 U/L (45-117); ANION GAP 12 MMOL/L (8-16); BILIRUBIN,TOTAL 0.4 mg/dL (0.2-1); BLOOD UREA NITROGEN 20 mg/dL (7-18); CALCIUM 8.3 mg/dL (8.5-10.1); CHLORIDE 106 mmol/L (98-107); CO2 25 mmol/L (21-32); CREATININE 0.8 mg/dL (0.55-1.3); GLUCOSE,RANDOM 91 mg/dL (74-106); POTASSIUM 3.8 mmol/L (3.5-5.1); SGOT/AST 21 U/L (15-37); SGPT/ALT 21 U/L (13-61); SODIUM 142 mmol/L (136-145); TOT PROT 6.7 g/dl (6.4-8.2)
--- NOTE | 2018-09-20 17:14 | EKG ---
Test Reason : Blood Pressure : / mmHG Vent. Rate : 065 BPM Atrial Rate : 065 BPM P-R Int : 142 ms QRS Dur : 168 ms QT Int : 530 ms P-R-T Axes : 018 002 148 degrees QTc Int : 551 ms POOR DATA QUALITY, INTERPRETATION MAY BE ADVERSELY AFFECTED Atrial-sensed ventricular-paced rhythm ABNORMAL ECG WHEN COMPARED WITH ECG OF 24-JUL-2018 15:23, VENT. RATE HAS DECREASED BY 21 BPM Confirmed by JUAN KEBEDE MD ([id number]) on 09/20/2018 5:14:03 PM Referred By: Confirmed By:JUAN KEBEDE MD
--- NOTE | 2018-09-20 19:24 | OP ---
Operative Note - Note: Operative Date: 09/20/18 Pre-Operative Diagnosis: left IT fracture Operation: left hip intramedullary nail Implants: FilmBreak gamma 3 170mm nail 125 deg, [id number] prox lag screw, 40x5 distal locking screw Post-Operative Diagnosis: Same as Pre-op Surgeon: Santo Rendon [employer] Back Counter Man: Pedro Jamison Anesthesiologist/GROUND EQUIPMENT MECHANIC: Grzegorz Rothman Anesthesia: General Operative Report Dictated: Yes
[2018-09-20] MEDS ORDERED: PROPOFOL 20 ML ONE (19:41)
[2018-09-20] MEDS ORDERED: ceFAZolin SODIUM 1 GM VIAL IVPB ONE (19:56)
[2018-09-20] MEDS ORDERED: ceFAZolin SODIUM 1 GM VIAL ONE (19:56)
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
[2018-09-20] MEDS ORDERED: ONDANSETRON 4 MG/2 ML VIAL IVPUSH PRN ×2 (21:01→21:19)
[2018-09-20] MEDS ORDERED: ONDANSETRON 4 MG/2 ML VIAL IVPUSH ONE ×2 (21:30→22:00)
[2018-09-20] MEDS ORDERED: ONDANSETRON 4 MG/2 ML VIAL ONE ×2 (21:32→21:57)
[2018-09-20] MEDS ORDERED: GABAPENTIN 300 MG CAPSULE (FP) PO SCH (22:00)
[2018-09-20] MEDS ORDERED: APIXABAN 5 MG TABLET PO SCH (22:00)
[2018-09-20] MEDS ORDERED: ATORVASTATIN CA 20 MG TABLET (FP) PO SCH (22:00)
[2018-09-20 23:20] VITALS: BMI 25.4
[2018-09-21] MEDS: CEFAZOLIN 1 GM/D5W 1 GM/50 ML BAG IVPB SCH ×3 (05:39→23:57)
[2018-09-21] MEDS: oxyCODONE HCL 5 MG TABLET PO PRN (05:43)
[2018-09-21] MEDS: GABAPENTIN 300 MG CAPSULE (FP) PO SCH ×3 (05:48→21:36)
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
[2018-09-21] MEDS ORDERED: VERAPAMIL HCL 240 MG E.R. TABLET (FP) PO SCH (07:00)
[2018-09-21 07:41] LABS: BASO % 0.4 % (0-2.0); EOS % 0.1 % (0-4.5); HEMATOCRIT 25.7 % (32.4-45.2); HEMOGLOBIN 8.8 GM/dL (10.7-15.3); LYMPH % 11.6 % (8-40); MCH 31.6 pg (25.7-33.7); MCHC 34.2 g/dl (32.0-36.0); MEAN CELL VOLUME 92.4 fl (80-96); MEAN PLT VOLUME 7.9 fl (7.5-11.1); MONO % 9.2 % (3.8-10.2); NEUT % 78.7 % (42.8-82.8); PLATELET COUNT 267 K/MM3 (134-434); RBC 2.79 M/mm3 (3.60-5.2); RDW 17.3 % (11.6-15.6); WHITE BLOOD COUNT 10.4 K/mm3 (4.0-10.0)
[2018-09-21 08:07] LABS: ANION GAP 10 MMOL/L (8-16); BLOOD UREA NITROGEN 26 mg/dL (7-18); CALCIUM 7.8 mg/dL (8.5-10.1); CHLORIDE 106 mmol/L (98-107); CO2 26 mmol/L (21-32); CREATININE 1.2 mg/dL (0.55-1.3); GLUCOSE,RANDOM 156 mg/dL (74-106); POTASSIUM 4.1 mmol/L (3.5-5.1); SODIUM 142 mmol/L (136-145)
--- NOTE | 2018-09-21 09:00 | CON.CARD ---
Consult Consult Specialty:: cardio - History of Present Illness Chief Complaint: fall History of Present Illness: 83 F here with fall and hip fracture. Patient was getting out of a car without her walker and slipped and fell on her left side. she was taken to OR last night for gamma-nail procedure. her pmd is dr alanna an ([facility]) water reclamation systems operator is dr rosales ([facility]) pt states she has disc'd falls risk and AC/cva risk with dr rosales and they have decided to continue AC for now she denies chf, CAD or other heart problems. feeling well, denies pre/syncope, cp, sob, palpit PMH: HTN, DM, afib w/ pacemaker on 2016 stent, osteoporosis, and multiple falls - Past Medical History Cardio/Vascular: Yes: CAD (s/p PCI with stent placemnet), HTN, Hyperlipdemia, Other (Pacemaker) Endocrine: Yes: Diabetes Mellitus - Past Surgical History Past Surgical History: Yes: Hysterectomy - Alcohol/Substance Use Hx Alcohol Use: No - Smoking History Smoking history: Former smoker Have you smoked in the past 12 months: No If you are a former smoker, when did you quit?: many years ago Home Medications - Allergies Allergies/Adverse Reactions: Allergies Allergy/AdvReac Type Severity Reaction Status Date / Time No Known Allergies Allergy Verified 09/20/18 12:32 - Home Medications Home Medications: Ambulatory Orders Metformin HCl [Glucophage] 500 mg PO DAILY 01/01/12 Verapamil HCl ER [Calan Sr -] 240 mg PO AM 01/01/12 Apixaban [Eliquis -] 5 mg PO BID 07/24/18 Atorvastatin Ca [Lipitor] 20 mg PO HS 07/24/18 Metoprolol Succinate 50 mg PO DAILY 07/24/18 Sertraline HCl [Zoloft] 100 mg PO DAILY 07/24/18 Acetaminophen [Tylenol .Regular Strength -] 650 mg PO Q6H PRN tablet 07/30/18 Cyclobenzaprine HCl [Flexeril -] 5 mg PO TID 3 Days tablet 07/30/18 Docusate Sodium [Colace -] 100 mg PO DAILY capsule 07/30/18 Gabapentin [Neurontin -] 300 mg PO TID capsule 07/30/18 Insulin Sliding Scale [Novolog Vial Sliding Scale -] 1 vial SQ BIDAC units Lactobacillus Acidophilus [Bacid -] 1 tab PO DAILY tab 07/30/18 Potassium Chloride [K-Dur -] 20 meq PO DAILY tablet.er 07/30/18 oxyCODONE HCL [Roxicodone -] 5 mg PO Q4H PRN tablet MDD 20 mg 07/30/18 Family Disease History - Family Disease History Family History: Denies (no known cmp) Review of Systems - Review of Systems Constitutional: denies: Chills, Fever Eyes: denies: Eye Pain HENT: denies: Nasal Congestion Neck: denies: Stiffness Cardiovascular: denies: Palpitations Respiratory: denies: Orthopnea, PND Gastrointestinal: denies: Diarrhea, Rectal Bleeding Genitourinary: denies: Burning, Hematuria Musculoskeletal: denies: Muscle Pain Integumentary: denies: Rash Neurological: denies: Numbness, Seizure, Syncope Endocrine: denies: Excessive Sweating Hematology/Lymphatic: denies: Excessive Bleeding Vital Signs: Vital Signs Temperature 98.3 F 09/21/18 05:40 Pulse Rate 81 09/21/18 05:40 Respiratory Rate 18 09/21/18 05:40 Blood Pressure 117/66 09/21/18 05:40 O2 Sat by Pulse Oximetry (%) 96 09/20/18 22:00 Constitutional: Yes: Well Nourished, No Distress Eyes: No: Sclera Icterus HENT: No: Nasal Congestion Neck: No: Decreased ROM Respiratory: Yes: CTA Bilaterally. No: Accessory Muscle Use, Rales, Wheezes Gastrointestinal: Yes: Normal Bowel Sounds. No: Distention, Hepatomegaly, Palpable Mass, Tenderness Cardiovascular: Yes: Regular Rate and Rhythm JVD: No Carotid Bruit: No PMI: Non-Displaced Heart Sounds: Yes: S1, S2. No: Gallop Murmur: Yes: Systolic Murmur (loud, ? late-peaking DOLORES lusb.). No: Diastolic Murmur Musculoskeletal: Yes: Other (No kyphosis) Extremities: No: Cold, Cyanosis Edema: No Peripheral Pulses: 2+ Left Carotid, 2+ Right Carotid, 2+ Left Doralis Pedis, 2+ Right Dorsalis Pedis Integumentary: No: Jaundice Neurological: Yes: Alert, Oriented (x3) Psychiatric: No: Agitated - Other Data Labs, Other Data: CBC, BMP 09/21/18 06:30 09/21/18 06:30 INR, PTT INR 1.77 (0.83-1.09) H 09/20/18 14:30 Troponin, BNP 09/20/18 14:30 Troponin I < 0.02 Troponin, BNP 09/20/18 14:30 Troponin I < 0.02 Laboratory Tests 09/20/18 09/20/18 09/20/18 14:30 14:30 14:30 WBC Hgb 11.4 Plt Count INR 1.77 H Sodium Potassium Carbon Dioxide BUN Creatinine AST 21 ALT 21 Troponin I < 0.02 Albumin 3.4 09/21/18 09/21/18 06:30 06:30 WBC 10.4 H Hgb 8.8 L Plt Count 267 INR Sodium 142 Potassium 4.1 Carbon Dioxide 26 BUN 26 H Creatinine 1.2 AST ALT Troponin I Albumin Assessment/Plan ECG: NSR, v-paced CXR: clear lungs/pleura. vascular stent in descending aorta mech fall with L hip fracture, s/p gamma nail 09/20, postop anemia: -? when last dose of eliquis was prior to surgery -routine H/H monitoring +/- transfusion per ortho -hold eliquis until cleared to resume by surgeon afib: -pt has outside water reclamation systems operator, on eliquis -has known history of multiple falls, walks with walker. -presently with fall and hip fracture stepping out of car. -pt clearly remains at high risk for recurrent falls, however her past history details and prior treatment discussions are not known to me. the decision of whether to stop her NOAC permanently, and whether to consider LA appendage closure (Watchman device) is a nuanced one and this is best left to follow up with her outpatient water reclamation systems operator. -given 3 gram drop in hgb postop day 1, will hold eliquis for now--timing of resuming AC per ortho when no concerns regarding active bleeding -rec pt f/u with dr an and her water reclamation systems operator within 2-4 weeks of hosp discharge murmur, ? aortic stenosis: -no signs of chf, pt with no attributable sx's at home -defer echo--will confirm with dr an pt has recent echo and is being monitored by dr rosales her water reclamation systems operator, in which case there is no indication for echo to be done here in stable, asymptomatic pt HTN: -bp controlled -same plan PPM: -routine monitoring with outpt cardio s/p endovascular aorta repair (descending thoracic): -vascular stent noted on CXR -outpt cardio f/u
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
[2018-09-21] MEDS ORDERED: DOCUSATE SODIUM 100 MG CAPSULE (FP) PO SCH (10:00)
[2018-09-21] MEDS ORDERED: SERTRALINE HCL 50 MG TABLET (FP) PO SCH (10:00)
[2018-09-21] MEDS ORDERED: POTASSIUM CHLORIDE TABS 10 MEQ TABLET.ER (FP) PO SCH (10:00)
--- NOTE | 2018-09-21 10:38 | PN ---
Progress Note, Physician Chief Complaint: s/p left gamma nail post op day one History of Present Illness: under general anesthesia - Current Medication List Current Medications: Active Medications Acetaminophen (Tylenol -) 650 mg PO Q6H PRN PRN Reason: PAIN LEVEL 1 - 3 Acetaminophen (Tylenol -) 325 mg PO Q6H PRN PRN Reason: PAIN LEVEL 4 - 6 Last Admin: 09/21/18 05:43 Dose: 325 mg Atorvastatin Calcium (Lipitor -) 20 mg PO HS [facility] Calcium Carbonate/Cholecalciferol (Os-Silvino 500+D -) 1 tab PO BID [facility] Docusate Sodium (Colace -) 100 mg PO DAILY [facility] Gabapentin (Neurontin -) 300 mg PO TID [facility] Last Admin: 09/21/18 05:48 Dose: 300 mg Cefazolin Sodium (Ancef 1 Gm Premixed Ivpb -) 1 gm in 50 mls @ 100 mls/hr IVPB Q8H [facility] Stop: 09/22/18 03:59 Last Admin: 09/21/18 05:39 Dose: 100 mls/hr Metoprolol Succinate (Toprol Xl -) 50 mg PO DAILY [facility] Ondansetron HCl (Zofran Injection) 4 mg IVPUSH Q6H PRN PRN Reason: NAUSEA AND/OR VOMITING Oxycodone HCl (Roxicodone -) 5 mg PO Q6H PRN PRN Reason: PAIN LEVEL 4 - 6 Last Admin: 09/21/18 05:43 Dose: 5 mg Potassium Chloride (K-Dur -) 20 meq PO DAILY [facility] Sertraline HCl (Zoloft -) 100 mg PO DAILY [facility] Verapamil HCl (Calan Sr -) 240 mg PO DAILY [facility] - Objective Vital Signs: Vital Signs Temperature 98.3 F 09/21/18 05:40 Pulse Rate 81 09/21/18 05:40 Respiratory Rate 18 09/21/18 05:40 Blood Pressure 117/66 09/21/18 05:40 O2 Sat by Pulse Oximetry (%) 96 09/20/18 22:00 Constitutional: Yes: Well Nourished Cardiovascular: Yes: WNL Respiratory: Yes: WNL Gastrointestinal: Yes: WNL Labs: CBC, BMP 09/21/18 06:30 09/21/18 06:30 INR, PTT INR 1.77 (0.83-1.09) H 09/20/18 14:30 Assessment/Plan Pain controlled, no adverse effects of anesthetic, dept of anesthesia will sign off care at this time
[2018-09-21] MEDS ORDERED: PT OWN MED DRAWER 7, Y5N ONE (10:50)
[2018-09-21] MEDS: POTASSIUM CHLORIDE TABS 20 MEQ TABLET.ER (FP) PO SCH (11:00)
[2018-09-21] MEDS: CALCIUM 500MG/VIT-D 200 UNITS COMBO TABLET (FP) PO SCH ×2 (11:00→21:36)
[2018-09-21] MEDS: SERTRALINE HCL 50 MG TABLET (FP) PO SCH (11:00)
[2018-09-21] MEDS: VERAPAMIL HCL 240 MG E.R. TABLET (FP) PO SCH (11:00)
[2018-09-21] MEDS: DOCUSATE SODIUM 100 MG CAPSULE (FP) PO SCH (11:01)
[2018-09-21] MEDS: ACETAMINOPHEN 325 MG TABLET (FP) PO PRN (14:35)
--- NOTE | 2018-09-21 17:02 | PN ---
Progress Note (short form) - Note Progress Note: ID Consult dictated POD#1 L femur intramedullary nail Post op fever Sepsis workup pending Incentive spirometry Continue empiric cefazolin
--- NOTE | 2018-09-21 18:33 | CONS ---
DATE OF CONSULTATION: 09/21/2018 INFECTIOUS DISEASE CONSULTATION HISTORY OF PRESENT ILLNESS: The patient is an 83-year-old female who was evaluated for postoperative fever. The patient fell on September 20, 2018, sustaining trauma to her left hip. She was found a left intertrochanteric fracture of the femur. Incidental findings were also right superior and inferior pelvic rami fracture which apparently is old. The patient was taken to the operating room on September 20, 2018, for a right hip intramedullary nail. Postoperatively, she is now noted to have fever to 101. The patient is awake and alert. She offers no focal complaint; however, she appears confused. She denies any shaking chills, chest pain, shortness of breath, cough, or sputum production. No vomiting or diarrhea, no dysuria or hematuria. PAST MEDICAL HISTORY: Positive for diabetes mellitus, atrial fibrillation, hyperlipidemia, hypertension. PAST SURGICAL HISTORY: Status post permanent pacemaker. ALLERGIES: No known allergies. MEDICATION: Glucophage, ramipril, Eliquis, Lipitor, Flexeril, Neurontin. SOCIAL HISTORY: [place] at home in the community with family. Former smoker. SYSTEMS REVIEW: Neurologic: No loss of consciousness, seizure activity, focal weakness. Cardiac: Negative for chest pain or palpitations. Respiratory: Negative for cough or sputum production. Gastrointestinal: Negative vomiting or diarrhea. Genitourinary: Negative for urinary tract infection. LABORATORY DATA: White count 10.4, hematocrit 25.7, platelet count 267, BUN 26, creatinine 1.2. PHYSICAL EXAMINATION: General: On physical examination, she is awake and alert. She appears slightly confused, supine in bed. Vital signs: Temperature 101, blood pressure 130/80, pulse 81 regular, respirations 20 per minute. HEENT: Sclerae anicteric. Cardiovascular: Heart sounds S1, S2. Irregular. Lungs: Clear. Abdomen: Soft, no tenderness elicited, no mass, rebound, or rigidity. Surgical dressing present over the left hip. Extremities: Negative for edema. Negative for Cyndi sign. IMPRESSION: 1. Postoperative day number 1, left hip intramedullary nail. 2. Postoperative fever. 3. Cultures have been requested. Chest x-ray, no evidence of pneumonia or atelectasis. Continue empiric antibiotic coverage with cephazolin perioperatively. Case discussed with patient's daughter present at the time of examination. Incentive spirometry, out of bed. Will follow. Thank you for the kind referral. MARIA EUGENIA LUNA M.D. DONAL/[id number]
--- NOTE | 2018-09-21 18:36 | PN ---
Progress Note (short form) - Note Progress Note: Pt comf in bed Confused Last Vital Signs Temp Pulse Resp BP Pulse Ox 98.4 F 71 20 124/54 L 95 09/21/18 16:15 09/21/18 16:15 09/21/18 16:15 09/21/18 16:15 09/21/18 09:00 LLE dressings cdi calves soft nt ehl fhl ta g s intact sens int to LT 2+ rad pulse Laboratory Results - last 24 hr 09/20/18 09/21/18 09/21/18 14:30 06:30 06:30 WBC 10.4 H RBC 2.79 L Hgb 8.8 L Hct 25.7 L D MCV 92.4 MCH 31.6 MCHC 34.2 RDW 17.3 H Plt Count 267 MPV 7.9 Absolute Neuts (auto) 8.2 H Neutrophils % 78.7 Lymphocytes % 11.6 Monocytes % 9.2 Eosinophils % 0.1 D Basophils % 0.4 Nucleated RBC % 0 Sodium 142 Potassium 4.1 Chloride 106 Carbon Dioxide 26 Anion Gap 10 BUN 26 H Creatinine 1.2 Creat Clearance w eGFR 42.70 Random Glucose 156 H Calcium 7.8 L Blood Type A POSITIVE Antibody Screen Negative Crossmatch See Detail 09/21/18 12:50 WBC RBC Hgb Hct MCV MCH MCHC RDW Plt Count MPV Absolute Neuts (auto) Neutrophils % Lymphocytes % Monocytes % Eosinophils % Basophils % Nucleated RBC % Sodium Potassium Chloride Carbon Dioxide Anion Gap BUN Creatinine Creat Clearance w eGFR Random Glucose Calcium Blood Type A POSITIVE Antibody Screen Crossmatch 83y F s/p L hip IM nail -post op fever is most likely benign, observe at this time -pain control, minimize narcotics -oob / PT -DVT proph -dispo planning
[2018-09-21 21:07] LABS: URINE APPEARANCE SLCLOUDY; URINE BILIRUBIN NEGATIVE (<2.0 mg/dL); URINE COLOR AMBER; URINE GLUCOSE (UA) NEGATIVE (NEGATIVE); URINE KETONE NEGATIVE (NEGATIVE); URINE LEUK ESTERASE TRACE (NEGATIVE); URINE NITRITE NEGATIVE (NEGATIVE); URINE PROTEIN NEGATIVE (NEGATIVE); URINE UROBILINOGEN NEGATIVE mg/dL (0.2-1.0)
[2018-09-21 21:12] LABS: EPI CELLS MODERATE /HPF (FEW); URINE BACTERIA RARE /hpf (NONE SEEN); URINE HYALINE CAST 4 /lpf; URINE MUCUS RARE
[2018-09-21] MEDS: ATORVASTATIN CA 20 MG TABLET (FP) PO SCH (21:36)
[2018-09-22] MEDS: ACETAMINOPHEN 325 MG TABLET (FP) PO PRN ×3 (02:43→21:25)
[2018-09-22 06:32] LABS: BASO % 0.5 % (0-2.0); HEMATOCRIT 28.3 % (32.4-45.2); HEMOGLOBIN 9.3 GM/dL (10.7-15.3); LYMPH % 15.1 % (8-40); MCH 29.1 pg (25.7-33.7); MCHC 32.7 g/dl (32.0-36.0); MEAN CELL VOLUME 88.9 fl (80-96); MONO % 11.2 % (3.8-10.2); NEUT % 72.2 % (42.8-82.8); PLATELET COUNT 182 K/MM3 (134-434); RBC 3.18 M/mm3 (3.60-5.2); RDW 18.6 % (11.6-15.6); WHITE BLOOD COUNT 8.8 K/mm3 (4.0-10.0)
[2018-09-22 07:07] LABS: ALBUMIN 2.7 g/dl (3.4-5.0); ALK PHOS 106 U/L (45-117); ANION GAP 8 MMOL/L (8-16); BILIRUBIN,TOTAL 0.6 mg/dL (0.2-1); BLOOD UREA NITROGEN 31 mg/dL (7-18); CALCIUM 7.9 mg/dL (8.5-10.1); CHLORIDE 103 mmol/L (98-107); CO2 26 mmol/L (21-32); CREATININE 1.3 mg/dL (0.55-1.3); GLUCOSE,RANDOM 115 mg/dL (74-106); POTASSIUM 4.2 mmol/L (3.5-5.1); SGOT/AST 15 U/L (15-37); SGPT/ALT 11 U/L (13-61); SODIUM 138 mmol/L (136-145); TOT PROT 5.3 g/dl (6.4-8.2)
[2018-09-22] MEDS: SERTRALINE HCL 50 MG TABLET (FP) PO SCH (09:43)
[2018-09-22] MEDS: VERAPAMIL HCL 240 MG E.R. TABLET (FP) PO SCH (09:44)
[2018-09-22] MEDS: CALCIUM 500MG/VIT-D 200 UNITS COMBO TABLET (FP) PO SCH ×2 (09:44→21:25)
[2018-09-22] MEDS: POTASSIUM CHLORIDE TABS 20 MEQ TABLET.ER (FP) PO SCH (09:45)
[2018-09-22] MEDS: DOCUSATE SODIUM 100 MG CAPSULE (FP) PO SCH (09:45)
--- NOTE | 2018-09-22 10:16 | PN ---
Progress Note, Physician History of Present Illness: She feels well. pain well controlled. - Current Medication List Current Medications: Active Medications Acetaminophen (Tylenol -) 650 mg PO Q6H PRN PRN Reason: PAIN LEVEL 1 - 3 Last Admin: 09/22/18 09:45 Dose: 650 mg Acetaminophen (Tylenol -) 325 mg PO Q6H PRN PRN Reason: PAIN LEVEL 4 - 6 Last Admin: 09/21/18 05:43 Dose: 325 mg Atorvastatin Calcium (Lipitor -) 20 mg PO HS [facility] Last Admin: 09/21/18 21:36 Dose: 20 mg Calcium Carbonate/Cholecalciferol (Os-Silvino 500+D -) 1 tab PO BID [facility] Last Admin: 09/22/18 09:44 Dose: 1 tab Docusate Sodium (Colace -) 100 mg PO DAILY [facility] Last Admin: 09/22/18 09:45 Dose: 100 mg Gabapentin (Neurontin -) 300 mg PO TID [facility] Last Admin: 09/21/18 21:36 Dose: 300 mg Metoprolol Succinate (Toprol Xl -) 50 mg PO DAILY [facility] Last Admin: 09/22/18 09:44 Dose: 50 mg Ondansetron HCl (Zofran Injection) 4 mg IVPUSH Q6H PRN PRN Reason: NAUSEA AND/OR VOMITING Oxycodone HCl (Roxicodone -) 5 mg PO Q6H PRN PRN Reason: PAIN LEVEL 4 - 6 Last Admin: 09/21/18 05:43 Dose: 5 mg Potassium Chloride (K-Dur -) 20 meq PO DAILY [facility] Last Admin: 09/22/18 09:45 Dose: 20 meq Sertraline HCl (Zoloft -) 100 mg PO DAILY [facility] Last Admin: 09/22/18 09:43 Dose: 100 mg Verapamil HCl (Calan Sr -) 240 mg PO DAILY [facility] Last Admin: 09/22/18 09:44 Dose: 240 mg - Objective Vital Signs: Vital Signs Temperature 98.6 F 09/22/18 05:55 Pulse Rate 69 09/22/18 05:55 Respiratory Rate 20 09/22/18 05:55 Blood Pressure 110/64 09/22/18 05:55 O2 Sat by Pulse Oximetry (%) 96 09/21/18 22:00 Constitutional: Yes: Well Nourished, No Distress, Calm Musculoskeletal: Yes: Other (Dressing CDI, Smooth motion of the hip. Compartments soft. Calf nontender. neg kellen's sign. NVID) Labs: CBC, BMP 09/22/18 06:10 09/22/18 06:10 INR, PTT INR 1.77 (0.83-1.09) H 09/20/18 14:30 Assessment/Plan POD #2 s/p L hip ORIF -PT WBAT -Pain control -DVT prophaxis -discharge planning
--- NOTE | 2018-09-22 11:33 | PN ---
Progress Note (short form) - Note Progress Note: - History of Present Illness Chief Complaint: fall History of Present Illness: no chest pain, palps, dyspnea Current Medications Acetaminophen (Tylenol -) 650 mg PO Q6H PRN PRN Reason: PAIN LEVEL 1 - 3 Last Admin: 09/22/18 09:45 Dose: 650 mg Acetaminophen (Tylenol -) 325 mg PO Q6H PRN PRN Reason: PAIN LEVEL 4 - 6 Last Admin: 09/21/18 05:43 Dose: 325 mg Atorvastatin Calcium (Lipitor -) 20 mg PO HS [facility] Last Admin: 09/21/18 21:36 Dose: 20 mg Calcium Carbonate/Cholecalciferol (Os-Silvino 500+D -) 1 tab PO BID [facility] Last Admin: 09/22/18 09:44 Dose: 1 tab Docusate Sodium (Colace -) 100 mg PO DAILY [facility] Last Admin: 09/22/18 09:45 Dose: 100 mg Gabapentin (Neurontin -) 300 mg PO TID [facility] Last Admin: 09/21/18 21:36 Dose: 300 mg Metoprolol Succinate (Toprol Xl -) 50 mg PO DAILY [facility] Last Admin: 09/22/18 09:44 Dose: 50 mg Ondansetron HCl (Zofran Injection) 4 mg IVPUSH Q6H PRN PRN Reason: NAUSEA AND/OR VOMITING Oxycodone HCl (Roxicodone -) 5 mg PO Q6H PRN PRN Reason: PAIN LEVEL 4 - 6 Last Admin: 09/21/18 05:43 Dose: 5 mg Potassium Chloride (K-Dur -) 20 meq PO DAILY [facility] Last Admin: 09/22/18 09:45 Dose: 20 meq Sertraline HCl (Zoloft -) 100 mg PO DAILY [facility] Last Admin: 09/22/18 09:43 Dose: 100 mg Verapamil HCl (Calan Sr -) 240 mg PO DAILY [facility] Last Admin: 09/22/18 09:44 Dose: 240 mg Vital Signs: Vital Signs Period Temp Pulse Resp BP Sys/Webb Pulse Ox Last 24 Hr 98.4 F-101 F 69-83 17-20 110-130/54-80 96-98 Constitutional: Yes: Well Nourished, No Distress Eyes: No: Sclera Icterus HENT: No: Nasal Congestion Neck: No: Decreased ROM Respiratory: Yes: CTA Bilaterally. No: Accessory Muscle Use, Rales, Wheezes Gastrointestinal: Yes: Normal Bowel Sounds. No: Distention, Hepatomegaly, Palpable Mass, Tenderness Cardiovascular: Yes: Regular Rate and Rhythm JVD: No Carotid Bruit: No PMI: Non-Displaced Heart Sounds: Yes: S1, S2. No: Gallop Murmur: Yes: Systolic Murmur (loud, ? late-peaking DOLORES lusb.). No: Diastolic Murmur Musculoskeletal: Yes: Other (No kyphosis) Extremities: No: Cold, Cyanosis Edema: No Peripheral Pulses: 2+ Left Carotid, 2+ Right Carotid, 2+ Left Doralis Pedis, 2+ Right Dorsalis Pedis Integumentary: No: Jaundice Neurological: Yes: Alert, Oriented (x3) Psychiatric: No: Agitated Assessment/Plan ECG: NSR, v-paced CXR: clear lungs/pleura. vascular stent in descending aorta mech fall with L hip fracture, s/p gamma nail 09/20, postop anemia: -? when last dose of eliquis was prior to surgery -routine H/H monitoring +/- transfusion per ortho -hold eliquis until cleared to resume by surgeon afib: -pt has outside licensed weigher, on eliquis -has known history of multiple falls, walks with walker. -presently with fall and hip fracture stepping out of car. -pt clearly remains at high risk for recurrent falls, however her past history details and prior treatment discussions are not known to me. the decision of whether to stop her NOAC permanently, and whether to consider LA appendage closure (Watchman device) is a nuanced one and this is best left to follow up with her outpatient licensed weigher. -given 3 gram drop in hgb postop day 1, will hold eliquis for now--timing of resuming AC per ortho when no concerns regarding active bleeding -rec pt f/u with dr an and her licensed weigher within 2-4 weeks of hosp discharge murmur, ? aortic stenosis: -no signs of chf, pt with no attributable sx's at home -defer echo-- stable, asymptomatic pt HTN: -bp controlled -same plan PPM: -routine monitoring with outpt cardio s/p endovascular aorta repair (descending thoracic): -vascular stent noted on CXR -outpt cardio f/u
[2018-09-22] MEDS: GABAPENTIN 300 MG CAPSULE (FP) PO SCH ×2 (14:05→21:25)
--- NOTE | 2018-09-22 15:39 | PN ---
Progress Note, Physician Chief Complaint: s/p hip gamma nail awake alert NAD \hasd some fever yesterday on IV ancef; ID called - blood cx and UCx CXR sent/ d/w pt and son at bedside to start PT rehab when cleared by ortho; do not get OOB alone, call for help; falls PFX - Current Medication List Current Medications: Active Medications Acetaminophen (Tylenol -) 650 mg PO Q6H PRN PRN Reason: PAIN LEVEL 1 - 3 Last Admin: 09/22/18 09:45 Dose: 650 mg Acetaminophen (Tylenol -) 325 mg PO Q6H PRN PRN Reason: PAIN LEVEL 4 - 6 Last Admin: 09/21/18 05:43 Dose: 325 mg Atorvastatin Calcium (Lipitor -) 20 mg PO HS [facility] Last Admin: 09/21/18 21:36 Dose: 20 mg Calcium Carbonate/Cholecalciferol (Os-Silvino 500+D -) 1 tab PO BID [facility] Last Admin: 09/22/18 09:44 Dose: 1 tab Docusate Sodium (Colace -) 100 mg PO DAILY [facility] Last Admin: 09/22/18 09:45 Dose: 100 mg Gabapentin (Neurontin -) 300 mg PO TID [facility] Last Admin: 09/22/18 14:05 Dose: 300 mg Metoprolol Succinate (Toprol Xl -) 50 mg PO DAILY [facility] Last Admin: 09/22/18 09:44 Dose: 50 mg Ondansetron HCl (Zofran Injection) 4 mg IVPUSH Q6H PRN PRN Reason: NAUSEA AND/OR VOMITING Oxycodone HCl (Roxicodone -) 5 mg PO Q6H PRN PRN Reason: PAIN LEVEL 4 - 6 Last Admin: 09/21/18 05:43 Dose: 5 mg Potassium Chloride (K-Dur -) 20 meq PO DAILY [facility] Last Admin: 09/22/18 09:45 Dose: 20 meq Sertraline HCl (Zoloft -) 100 mg PO DAILY [facility] Last Admin: 09/22/18 09:43 Dose: 100 mg Verapamil HCl (Calan Sr -) 240 mg PO DAILY [facility] Last Admin: 09/22/18 09:44 Dose: 240 mg - Objective Vital Signs: Vital Signs Temperature 98.0 F 09/22/18 14:00 Pulse Rate 70 09/22/18 14:00 Respiratory Rate 20 09/22/18 14:00 Blood Pressure 130/95 09/22/18 14:00 O2 Sat by Pulse Oximetry (%) 98 09/22/18 09:00 Constitutional: Yes: No Distress, Calm Eyes: Yes: Conjunctiva Clear HENT: Yes: Atraumatic Neck: Yes: Supple Cardiovascular: Yes: Regular Rate and Rhythm Respiratory: Yes: CTA Bilaterally Gastrointestinal: Yes: Soft. No: Distention Genitourinary: No: CVA Tenderness - Left, CVA Tenderness - Right, Hematuria Extremities: No: Calf Tenderness, Cold, Cool, Cyanosis, Erythema Edema: No Integumentary: No: Rash, Venous Stasis Changes Neurological: Yes: WNL, Alert, Oriented ...Motor Strength: WNL Psychiatric: Yes: WNL, Alert, Oriented. No: Agitated, Suicidal Ideation Labs: CBC, BMP 09/22/18 06:10 09/22/18 06:10 INR, PTT INR 1.77 (0.83-1.09) H 09/20/18 14:30 - ....Imaging Other: Report Reviewed Assessment/Plan Ms. Dickerson is an 83 yo female w/ pmh of HTN, DM, afib w/ pacemaker on 2016 stent, osteoporosis, and multiple falls who presents for evaluation after fall yesterday dx with L hip fracture and R pubic fractures; surgery done by ortho f/u labs, temp pain meds prn DVT pfx cardiology and ortho f/u falls PFX d/w pt and staff, d/w pt;s son at bedside
[2018-09-22] MEDS: ATORVASTATIN CA 20 MG TABLET (FP) PO SCH (21:25)
[2018-09-23] MEDS: GABAPENTIN 300 MG CAPSULE (FP) PO SCH ×2 (06:09→21:17)
[2018-09-23 06:36] LABS: BASO % 0.5 % (0-2.0); EOS % 2.2 % (0-4.5); HEMATOCRIT 30.3 % (32.4-45.2); HEMOGLOBIN 9.8 GM/dL (10.7-15.3); LYMPH % 14.4 % (8-40); MCHC 32.4 g/dl (32.0-36.0); MEAN CELL VOLUME 89.4 fl (80-96); MEAN PLT VOLUME 7.4 fl (7.5-11.1); MONO % 10.6 % (3.8-10.2); NEUT % 72.3 % (42.8-82.8); PLATELET COUNT 184 K/MM3 (134-434); RBC 3.39 M/mm3 (3.60-5.2); WHITE BLOOD COUNT 7.3 K/mm3 (4.0-10.0)
--- NOTE | 2018-09-23 06:55 | PN ---
Progress Note, Physician Chief Complaint: OOB to chair feeling well no c/o no pain started PT rehab; possible DC to SNF if stable and afebrile - Current Medication List Current Medications: Active Medications Acetaminophen (Tylenol -) 650 mg PO Q6H PRN PRN Reason: PAIN LEVEL 1 - 3 Last Admin: 09/22/18 21:25 Dose: 650 mg Acetaminophen (Tylenol -) 325 mg PO Q6H PRN PRN Reason: PAIN LEVEL 4 - 6 Last Admin: 09/21/18 05:43 Dose: 325 mg Atorvastatin Calcium (Lipitor -) 20 mg PO HS [facility] Last Admin: 09/22/18 21:25 Dose: 20 mg Calcium Carbonate/Cholecalciferol (Os-Silvino 500+D -) 1 tab PO BID [facility] Last Admin: 09/22/18 21:25 Dose: 1 tab Docusate Sodium (Colace -) 100 mg PO DAILY [facility] Last Admin: 09/22/18 09:45 Dose: 100 mg Gabapentin (Neurontin -) 300 mg PO TID [facility] Last Admin: 09/23/18 06:09 Dose: 300 mg Metoprolol Succinate (Toprol Xl -) 50 mg PO DAILY [facility] Last Admin: 09/22/18 09:44 Dose: 50 mg Ondansetron HCl (Zofran Injection) 4 mg IVPUSH Q6H PRN PRN Reason: NAUSEA AND/OR VOMITING Oxycodone HCl (Roxicodone -) 5 mg PO Q6H PRN PRN Reason: PAIN LEVEL 4 - 6 Last Admin: 09/21/18 05:43 Dose: 5 mg Potassium Chloride (K-Dur -) 20 meq PO DAILY [facility] Last Admin: 09/22/18 09:45 Dose: 20 meq Sertraline HCl (Zoloft -) 100 mg PO DAILY [facility] Last Admin: 09/22/18 09:43 Dose: 100 mg Verapamil HCl (Calan Sr -) 240 mg PO DAILY [facility] Last Admin: 09/22/18 09:44 Dose: 240 mg - Objective Vital Signs: Vital Signs Temperature 99.0 F 09/23/18 05:50 Pulse Rate 72 09/23/18 05:50 Respiratory Rate 18 09/23/18 05:50 Blood Pressure 134/74 09/23/18 05:50 O2 Sat by Pulse Oximetry (%) 97 09/22/18 22:00 Constitutional: Yes: No Distress, Calm Eyes: Yes: Conjunctiva Clear HENT: Yes: Atraumatic Neck: Yes: Supple Cardiovascular: Yes: Regular Rate and Rhythm Respiratory: Yes: CTA Bilaterally Gastrointestinal: Yes: Soft. No: Distention Genitourinary: No: CVA Tenderness - Left, CVA Tenderness - Right Musculoskeletal: No: Joint Stiffness, Joint Swelling Extremities: No: Cold, Cool, Cyanosis Edema: No Integumentary: No: Rash, Venous Stasis Changes Neurological: Yes: WNL, Alert, Oriented ...Motor Strength: WNL Psychiatric: Yes: WNL, Alert, Oriented. No: Agitated, Suicidal Ideation Labs: CBC, BMP 09/23/18 06:15 INR, PTT INR 1.77 (0.83-1.09) H 09/20/18 14:30 - ....Imaging Other: Report Reviewed Assessment/Plan Ms. Dickerson is an 83 yo female w/ pmh of HTN, DM, afib w/ pacemaker on 2016 stent, osteoporosis, and multiple falls who presents with L hip fracture and R pubic fractures; had anemia and temp postop, transfused and s/p IV ancef; H&H stable; afebrile today s/p L hip surgery done by ortho f/u labs, temp pain meds prn DVT pfx cardiology and ortho f/u falls PFX possible DC to SNF if stable d/w pt and staff
[2018-09-23 07:02] LABS: ALBUMIN 2.6 g/dl (3.4-5.0); ALK PHOS 113 U/L (45-117); ANION GAP 5 MMOL/L (8-16); BILIRUBIN,TOTAL 0.8 mg/dL (0.2-1); BLOOD UREA NITROGEN 21 mg/dL (7-18); CHLORIDE 103 mmol/L (98-107); CO2 30 mmol/L (21-32); CREATININE 0.8 mg/dL (0.55-1.3); GLUCOSE,RANDOM 107 mg/dL (74-106); POTASSIUM 4.1 mmol/L (3.5-5.1); SGOT/AST 16 U/L (15-37); SGPT/ALT 13 U/L (13-61); SODIUM 138 mmol/L (136-145); TOT PROT 5.6 g/dl (6.4-8.2)
[2018-09-23] MEDS: POTASSIUM CHLORIDE TABS 20 MEQ TABLET.ER (FP) PO SCH (10:18)
[2018-09-23] MEDS: SERTRALINE HCL 50 MG TABLET (FP) PO SCH (10:19)
[2018-09-23] MEDS: CALCIUM 500MG/VIT-D 200 UNITS COMBO TABLET (FP) PO SCH ×2 (10:19→21:17)
[2018-09-23] MEDS: VERAPAMIL HCL 240 MG E.R. TABLET (FP) PO SCH (10:19)
[2018-09-23] MEDS: DOCUSATE SODIUM 100 MG CAPSULE (FP) PO SCH (10:20)
--- NOTE | 2018-09-23 11:41 | PN ---
Progress Note, Physician History of Present Illness: OOB in chair C/O L hip pain No c/o fever/ chills No chest pain/ dyspnea/ cough No dysuria/hematuria WBC WNL Cultures no growth - Current Medication List Current Medications: Active Medications Acetaminophen (Tylenol -) 650 mg PO Q6H PRN PRN Reason: PAIN LEVEL 1 - 3 Last Admin: 09/22/18 21:25 Dose: 650 mg Acetaminophen (Tylenol -) 325 mg PO Q6H PRN PRN Reason: PAIN LEVEL 4 - 6 Last Admin: 09/21/18 05:43 Dose: 325 mg Atorvastatin Calcium (Lipitor -) 20 mg PO HS [facility] Last Admin: 09/22/18 21:25 Dose: 20 mg Calcium Carbonate/Cholecalciferol (Os-Silvino 500+D -) 1 tab PO BID [facility] Last Admin: 09/23/18 10:19 Dose: 1 tab Docusate Sodium (Colace -) 100 mg PO DAILY [facility] Last Admin: 09/23/18 10:20 Dose: 100 mg Gabapentin (Neurontin -) 300 mg PO TID [facility] Last Admin: 09/23/18 06:09 Dose: 300 mg Metoprolol Succinate (Toprol Xl -) 50 mg PO DAILY [facility] Last Admin: 09/23/18 10:19 Dose: 50 mg Ondansetron HCl (Zofran Injection) 4 mg IVPUSH Q6H PRN PRN Reason: NAUSEA AND/OR VOMITING Oxycodone HCl (Roxicodone -) 5 mg PO Q6H PRN PRN Reason: PAIN LEVEL 4 - 6 Last Admin: 09/21/18 05:43 Dose: 5 mg Potassium Chloride (K-Dur -) 20 meq PO DAILY [facility] Last Admin: 09/23/18 10:18 Dose: 20 meq Sertraline HCl (Zoloft -) 100 mg PO DAILY [facility] Last Admin: 09/23/18 10:19 Dose: 100 mg Verapamil HCl (Calan Sr -) 240 mg PO DAILY [facility] Last Admin: 09/23/18 10:19 Dose: 240 mg - Objective Vital Signs: Vital Signs Temperature 97.6 F 09/23/18 10:00 Pulse Rate 106 H 09/23/18 10:00 Respiratory Rate 18 09/23/18 10:00 Blood Pressure 128/75 09/23/18 10:00 O2 Sat by Pulse Oximetry (%) 94 L 09/23/18 09:00 Constitutional: Yes: No Distress Eyes: Yes: Conjunctiva Clear Cardiovascular: Yes: Regular Rate and Rhythm, S1, S2 Respiratory: Yes: Other (few crepitations, bases) Gastrointestinal: Yes: Normal Bowel Sounds, Soft. No: Tenderness Extremities: Yes: Other (dressing in place L hip) Edema: No Labs: CBC, BMP 09/23/18 06:15 09/23/18 06:15 INR, PTT INR 1.77 (0.83-1.09) H 09/20/18 14:30 Assessment/Plan POD#2 L femur intramedullary nail Post op fever- resolved Observe off antibiotics
--- NOTE | 2018-09-23 11:47 | PN ---
Progress Note (short form) - Note Progress Note: - History of Present Illness Chief Complaint: fall History of Present Illness: no chest pain, palps, dyspnea Current Medications Acetaminophen (Tylenol -) 650 mg PO Q6H PRN PRN Reason: PAIN LEVEL 1 - 3 Last Admin: 09/22/18 21:25 Dose: 650 mg Acetaminophen (Tylenol -) 325 mg PO Q6H PRN PRN Reason: PAIN LEVEL 4 - 6 Last Admin: 09/21/18 05:43 Dose: 325 mg Atorvastatin Calcium (Lipitor -) 20 mg PO HS [facility] Last Admin: 09/22/18 21:25 Dose: 20 mg Calcium Carbonate/Cholecalciferol (Os-Silvino 500+D -) 1 tab PO BID [facility] Last Admin: 09/23/18 10:19 Dose: 1 tab Docusate Sodium (Colace -) 100 mg PO DAILY [facility] Last Admin: 09/23/18 10:20 Dose: 100 mg Gabapentin (Neurontin -) 300 mg PO TID [facility] Last Admin: 09/23/18 06:09 Dose: 300 mg Metoprolol Succinate (Toprol Xl -) 50 mg PO DAILY [facility] Last Admin: 09/23/18 10:19 Dose: 50 mg Ondansetron HCl (Zofran Injection) 4 mg IVPUSH Q6H PRN PRN Reason: NAUSEA AND/OR VOMITING Oxycodone HCl (Roxicodone -) 5 mg PO Q6H PRN PRN Reason: PAIN LEVEL 4 - 6 Last Admin: 09/21/18 05:43 Dose: 5 mg Potassium Chloride (K-Dur -) 20 meq PO DAILY [facility] Last Admin: 09/23/18 10:18 Dose: 20 meq Sertraline HCl (Zoloft -) 100 mg PO DAILY [facility] Last Admin: 09/23/18 10:19 Dose: 100 mg Verapamil HCl (Calan Sr -) 240 mg PO DAILY [facility] Last Admin: 09/23/18 10:19 Dose: 240 mg Vital Signs: Vital Signs Period Temp Pulse Resp BP Sys/Webb Pulse Ox Last 24 Hr 97.6 F-99.0 F 62-106 18-20 122-134/71-95 94-97 Constitutional: Yes: Well Nourished, No Distress Eyes: No: Sclera Icterus HENT: No: Nasal Congestion Neck: No: Decreased ROM Respiratory: Yes: CTA Bilaterally. No: Accessory Muscle Use, Rales, Wheezes Gastrointestinal: Yes: Normal Bowel Sounds. No: Distention, Hepatomegaly, Palpable Mass, Tenderness Cardiovascular: Yes: Regular Rate and Rhythm JVD: No Carotid Bruit: No PMI: Non-Displaced Heart Sounds: Yes: S1, S2. No: Gallop Murmur: Yes: Systolic Murmur (loud, ? late-peaking DOLORES lusb.). No: Diastolic Murmur Musculoskeletal: Yes: Other (No kyphosis) Extremities: No: Cold, Cyanosis Edema: No Peripheral Pulses: 2+ Left Carotid, 2+ Right Carotid, 2+ Left Doralis Pedis, 2+ Right Dorsalis Pedis Integumentary: No: Jaundice Neurological: Yes: Alert, Oriented (x3) Psychiatric: No: Agitated Assessment/Plan ECG: NSR, v-paced CXR: clear lungs/pleura. vascular stent in descending aorta mech fall with L hip fracture, s/p gamma nail 09/20, postop anemia: -? when last dose of eliquis was prior to surgery -routine H/H monitoring +/- transfusion per ortho - resume eliquis, okay per ortho afib: -pt has outside television parts tester, on eliquis -has known history of multiple falls, walks with walker. -presently with fall and hip fracture stepping out of car. -pt clearly remains at high risk for recurrent falls, however her past history details and prior treatment discussions are not known to me. the decision of whether to stop her NOAC permanently, and whether to consider LA appendage closure (Watchman device) is a nuanced one and this is best left to follow up with her outpatient television parts tester. - clear to resume eliquis per ortho -rec pt f/u with dr an and her television parts tester within 2-4 weeks of hosp discharge murmur, ? aortic stenosis: -no signs of chf, pt with no attributable sx's at home -defer echo-- stable, asymptomatic pt HTN: -bp controlled -same plan PPM: -routine monitoring with outpt cardio s/p endovascular aorta repair (descending thoracic): -vascular stent noted on CXR -outpt cardio f/u
--- NOTE | 2018-09-23 12:18 | PN ---
Progress Note (short form) - Note Progress Note: Pt comf in chair Alert and conversing but forgetful Last Vital Signs Temp Pulse Resp BP Pulse Ox 97.6 F 106 H 18 128/75 94 L 09/23/18 10:00 09/23/18 10:00 09/23/18 10:00 09/23/18 10:00 09/23/18 09:00 LLE dressings cdi calves soft nt ehl fhl ta g s intact sens int to LT 2+ rad pulse Laboratory Results - last 24 hr 09/23/18 09/23/18 06:15 06:15 WBC 7.3 RBC 3.39 L Hgb 9.8 L Hct 30.3 L MCV 89.4 MCH 29.0 MCHC 32.4 RDW 18.0 H Plt Count 184 MPV 7.4 L Absolute Neuts (auto) 5.3 Neutrophils % 72.3 Lymphocytes % 14.4 Monocytes % 10.6 H Eosinophils % 2.2 D Basophils % 0.5 Nucleated RBC % 0 Sodium 138 Potassium 4.1 Chloride 103 Carbon Dioxide 30 Anion Gap 5 L BUN 21 H Creatinine 0.8 Creat Clearance w eGFR > 60 Random Glucose 107 H Calcium 9.0 Total Bilirubin 0.8 AST 16 ALT 13 Alkaline Phosphatase 113 Total Protein 5.6 L Albumin 2.6 L 83y F s/p L hip IM nail -pt HCT responded appropriately -can resume anticoagulation -pt -pain control with tylenol -ok to dc if tachycardia resolves, pain response?, follow up next vitals
[2018-09-23] MEDS: APIXABAN 5 MG TABLET PO SCH (21:16)
[2018-09-23] MEDS: ATORVASTATIN CA 20 MG TABLET (FP) PO SCH (21:16)
[2018-09-23] MEDS: ACETAMINOPHEN 325 MG TABLET (FP) PO PRN (21:17)
[2018-09-24] MEDS ORDERED: PT OWN MED DRAWER 7, Y5N ONE (00:49)
[2018-09-24] MEDS: GABAPENTIN 300 MG CAPSULE (FP) PO SCH ×3 (06:17→21:31)
[2018-09-24 08:00] LABS: BASO % 0.7 % (0-2.0); EOS % 2.6 % (0-4.5); HEMATOCRIT 28.5 % (32.4-45.2); HEMOGLOBIN 9.9 GM/dL (10.7-15.3); LYMPH % 13.6 % (8-40); MCHC 34.8 g/dl (32.0-36.0); MEAN CELL VOLUME 88.9 fl (80-96); MEAN PLT VOLUME 7.7 fl (7.5-11.1); MONO % 11.4 % (3.8-10.2); NEUT % 71.7 % (42.8-82.8); PLATELET COUNT 211 K/MM3 (134-434); RBC 3.21 M/mm3 (3.60-5.2); RDW 17.9 % (11.6-15.6); WHITE BLOOD COUNT 5.7 K/mm3 (4.0-10.0)
[2018-09-24] MEDS: CALCIUM 500MG/VIT-D 200 UNITS COMBO TABLET (FP) PO SCH ×2 (09:07→21:31)
[2018-09-24] MEDS: POTASSIUM CHLORIDE TABS 20 MEQ TABLET.ER (FP) PO SCH (09:07)
[2018-09-24 09:08] LABS: ANION GAP 9 MMOL/L (8-16); BLOOD UREA NITROGEN 19 mg/dL (7-18); CALCIUM 8.7 mg/dL (8.5-10.1); CHLORIDE 103 mmol/L (98-107); CO2 27 mmol/L (21-32); CREATININE 0.7 mg/dL (0.55-1.3); GLUCOSE,RANDOM 110 mg/dL (74-106); SODIUM 140 mmol/L (136-145)
[2018-09-24] MEDS: ACETAMINOPHEN 325 MG TABLET (FP) PO PRN ×2 (09:08→21:36)
[2018-09-24] MEDS: VERAPAMIL HCL 240 MG E.R. TABLET (FP) PO SCH (09:08)
[2018-09-24] MEDS: SERTRALINE HCL 50 MG TABLET (FP) PO SCH (09:08)
[2018-09-24] MEDS: DOCUSATE SODIUM 100 MG CAPSULE (FP) PO SCH (09:08)
[2018-09-24] MEDS: APIXABAN 5 MG TABLET PO SCH ×2 (09:09→21:31)
--- NOTE | 2018-09-24 10:39 | PN ---
Progress Note (short form) - Note Progress Note: Chief Complaint: fall History of Present Illness: no chest pain, palps, dyspnea Current Medications Generic Name Dose Route Start Last Admin Trade Name Freq PRN Reason Stop Dose Admin Acetaminophen 650 mg 09/20/18 21:19 09/24/18 09:08 Tylenol - PO 650 mg Q6H PRN Administration PAIN LEVEL 1 - 3 Acetaminophen 325 mg 09/20/18 21:24 09/21/18 05:43 Tylenol - PO 325 mg Q6H PRN Administration PAIN LEVEL 4 - 6 Apixaban 5 mg 09/23/18 22:00 09/24/18 09:09 Eliquis - PO 5 mg BID MELISSA Administration Atorvastatin Calcium 20 mg 09/20/18 22:00 09/23/18 21:16 Lipitor - PO 20 mg HS MELISSA Administration Calcium Carbonate/Cholecalciferol 1 tab 09/20/18 22:00 09/24/18 09:07 Os-Silvino 500+D - PO 1 tab BID M[facility]ISSA Administration Docusate Sodium 100 mg 09/21/18 10:00 09/24/18 09:08 Colace - PO 100 mg DAILY M[facility]IS[facility] Administration Gabapentin 300 mg 09/20/18 22:00 09/24/18 06:17 Neurontin - PO 300 mg TID MELISSA Administration Metoprolol Succinate 50 mg 09/21/18 10:00 09/24/18 09:08 Toprol Xl - PO 50 mg DAILY M[facility] Administration Ondansetron HCl 4 mg 09/20/18 21:19 Zofran Injection IVPUSH Q6H PRN NAUSEA AND/OR VOMITING Oxycodone HCl 5 mg 09/20/18 21:24 09/21/18 05:43 Roxicodone - PO 5 mg Q6H PRN Administration PAIN LEVEL 4 - 6 Potassium Chloride 20 meq 09/21/18 10:00 09/24/18 09:07 K-Dur - PO 20 meq DAILY [facility] Administration Sertraline HCl 100 mg 09/21/18 10:00 09/24/18 09:08 Zoloft - PO 100 mg DAILY [facility] Administration Verapamil HCl 240 mg 09/21/18 10:00 09/24/18 09:08 Calan Sr - PO 240 mg DAILY [facility] Administration Vital Signs: Vital Signs Period Temp Pulse Resp BP Sys/Webb Pulse Ox Last 24 Hr 97.9 F-99.7 F 73-86 18-20 126-148/68-79 94-95 Constitutional: Yes: Well Nourished, No Distress Eyes: No: Sclera Icterus Respiratory: Yes: CTA Bilaterally. No: Accessory Muscle Use, Rales, Wheezes Gastrointestinal: Yes: Normal Bowel Sounds. No: Distention, Hepatomegaly, Palpable Mass, Tenderness Cardiovascular: Yes: Regular Rate and Rhythm JVD: No Carotid Bruit: No PMI: Non-Displaced Heart Sounds: Yes: S1, S2. No: Gallop Murmur: Yes: Systolic Murmur (loud, ? late-peaking DOLORES lusb.). No: Diastolic Murmur Extremities: No: Cold, Cyanosis Edema: No Integumentary: No: Jaundice Neurological: Yes: Alert, Oriented (x3) Psychiatric: No: Agitated CBC, BMP 09/24/18 07:30 09/24/18 07:30 Assessment/Plan ECG: NSR, v-paced CXR: clear lungs/pleura. vascular stent in descending aorta mech fall with L hip fracture, s/p gamma nail 09/20, postop anemia: -s/p OR, ortho following afib: -pt has outside waterproofer helper, on eliquis -has known history of multiple falls, walks with walker. -presently with fall and hip fracture stepping out of car. -pt clearly remains at high risk for recurrent falls, however her past history details and prior treatment discussions are not known to me. the decision of whether to stop her NOAC permanently, and whether to consider LA appendage closure (Watchman device) is a nuanced one and this is best left to follow up with her outpatient waterproofer helper. - clear to resume eliquis per ortho -rec pt f/u with dr an and her waterproofer helper within 2-4 weeks of hosp discharge murmur, ? aortic stenosis: -no signs of chf, pt with no attributable sx's at home -defer echo-- stable, asymptomatic pt HTN: -bp controlled -same plan PPM: -routine monitoring with outpt cardio s/p endovascular aorta repair (descending thoracic): -vascular stent noted on CXR -outpt cardio f/u
--- NOTE | 2018-09-24 13:12 | PN ---
Progress Note, Physician Chief Complaint: OOB to chair stable no new c/o walked 20 feet with PT; pt agreed to go to SNF d/w CLEMENTINE Conklin MA - Current Medication List Current Medications: Active Medications Acetaminophen (Tylenol -) 650 mg PO Q6H PRN PRN Reason: PAIN LEVEL 1 - 3 Last Admin: 09/24/18 09:08 Dose: 650 mg Acetaminophen (Tylenol -) 325 mg PO Q6H PRN PRN Reason: PAIN LEVEL 4 - 6 Last Admin: 09/21/18 05:43 Dose: 325 mg Apixaban (Eliquis -) 5 mg PO BID [facility] Last Admin: 09/24/18 09:09 Dose: 5 mg Atorvastatin Calcium (Lipitor -) 20 mg PO HS [facility] Last Admin: 09/23/18 21:16 Dose: 20 mg Calcium Carbonate/Cholecalciferol (Os-Silvino 500+D -) 1 tab PO BID [facility] Last Admin: 09/24/18 09:07 Dose: 1 tab Docusate Sodium (Colace -) 100 mg PO DAILY [facility] Last Admin: 09/24/18 09:08 Dose: 100 mg Gabapentin (Neurontin -) 300 mg PO TID [facility] Last Admin: 09/24/18 06:17 Dose: 300 mg Metoprolol Succinate (Toprol Xl -) 50 mg PO DAILY [facility] Last Admin: 09/24/18 09:08 Dose: 50 mg Ondansetron HCl (Zofran Injection) 4 mg IVPUSH Q6H PRN PRN Reason: NAUSEA AND/OR VOMITING Oxycodone HCl (Roxicodone -) 5 mg PO Q6H PRN PRN Reason: PAIN LEVEL 4 - 6 Last Admin: 09/21/18 05:43 Dose: 5 mg Potassium Chloride (K-Dur -) 20 meq PO DAILY [facility] Last Admin: 09/24/18 09:07 Dose: 20 meq Sertraline HCl (Zoloft -) 100 mg PO DAILY [facility] Last Admin: 09/24/18 09:08 Dose: 100 mg Verapamil HCl (Calan Sr -) 240 mg PO DAILY [facility] Last Admin: 09/24/18 09:08 Dose: 240 mg - Objective Vital Signs: Vital Signs Temperature 97.9 F 09/24/18 10:00 Pulse Rate 77 09/24/18 10:00 Respiratory Rate 18 09/24/18 10:00 Blood Pressure 140/79 09/24/18 10:00 O2 Sat by Pulse Oximetry (%) 95 09/24/18 09:00 Constitutional: Yes: No Distress, Calm Eyes: Yes: Conjunctiva Clear HENT: Yes: Atraumatic Neck: Yes: Supple Cardiovascular: Yes: Regular Rate and Rhythm Respiratory: Yes: CTA Bilaterally Gastrointestinal: Yes: Soft. No: Distention Genitourinary: No: CVA Tenderness - Left, CVA Tenderness - Right Musculoskeletal: No: Joint Stiffness, Joint Swelling Extremities: No: Cold, Cool, Cyanosis Edema: No Integumentary: No: Rash, Venous Stasis Changes Neurological: Yes: WNL, Alert, Oriented ...Motor Strength: WNL Psychiatric: Yes: WNL, Alert, Oriented. No: Agitated, Suicidal Ideation Labs: CBC, BMP 09/24/18 07:30 09/24/18 07:30 INR, PTT INR 1.77 (0.83-1.09) H 09/20/18 14:30 - ....Imaging Other: Report Reviewed Assessment/Plan Ms. Dickerson is an 83 yo female w/ pmh of HTN, DM, afib w/ pacemaker on 2016 stent, osteoporosis, and multiple falls who presents with L hip fracture and R pubic fractures; had anemia and temp postop, transfused and s/p IV ancef; H&H stable; s/p L hip surgery restarted AC pain meds prn DVT pfx cardiology and ortho f/u falls PFX DC to SNF d/w CM d/w pt and staff
--- NOTE | 2018-09-24 14:48 | PN ---
Progress Note (short form) - Note Progress Note: Pt lying comfortably in bed Conversing but forgetful Last Vital Signs Temp Pulse Resp BP Pulse Ox 98.2 F 68 20 119/68 95 09/24/18 13:23 09/24/18 13:23 09/24/18 13:23 09/24/18 13:23 09/24/18 09:00 LLE dressings cdi calves soft nt ehl fhl ta g s intact sens int to LT 2+ rad pulse Laboratory Results - last 24 hr 09/24/18 09/24/18 07:30 07:30 WBC 5.7 RBC 3.21 L Hgb 9.9 L Hct 28.5 L MCV 88.9 MCH 31.0 MCHC 34.8 RDW 17.9 H Plt Count 211 MPV 7.7 Absolute Neuts (auto) 4.1 Neutrophils % 71.7 Lymphocytes % 13.6 Monocytes % 11.4 H Eosinophils % 2.6 Basophils % 0.7 Nucleated RBC % 0 Sodium 140 Potassium 4.0 Chloride 103 Carbon Dioxide 27 Anion Gap 9 BUN 19 H Creatinine 0.7 Creat Clearance w eGFR > 60 Random Glucose 110 H Calcium 8.7 83y F s/p L hip IM nail -pt's h/h stable at this point -ok for regular anticoagulation -continue pt -scds -stable for discharge
[2018-09-24] MEDS: ATORVASTATIN CA 20 MG TABLET (FP) PO SCH (21:31)
[2018-09-25] MEDS: GABAPENTIN 300 MG CAPSULE (FP) PO SCH ×2 (06:04→14:21)
--- NOTE | 2018-09-25 08:52 | DS ---
Physical Examination Vital Signs: Vital Signs Temperature 98.1 F 09/25/18 06:00 Pulse Rate 75 09/25/18 06:00 Respiratory Rate 20 09/25/18 06:00 Blood Pressure 150/94 09/25/18 06:00 O2 Sat by Pulse Oximetry (%) 95 09/24/18 21:00 Findings/Remarks: pt in bed awake alert NAD VSS no c/o d/w pt DC planning; she lives in a 2 family house her daughter lives upstairs; she said she went before to [facility] and she was not very happy there; d/w pt 's daughter Bri / phone and she is adamant she and her brother (pt's son) want Sandra to go home NOT to any NH/SNF; d/w Bri that pt walked 20 feet only with PT and she should go to SNF d/w her risks of falling, decubs, at that she needs 24 h care at home and constant supervision at this point and strongly advised to go to SNF but she is still refusing SNF said she will be home with the pt and she will also have an aid to help her home; scripts and papers done, d/w case checker to arrange home PT home VNS, d/w pt's PCP dr Nguyen needs f/u with PCP and ortho in 1-2 weeks Constitutional: Yes: No Distress, Calm Eyes: Yes: Conjunctiva Clear HENT: Yes: Atraumatic Neck: Yes: Supple Cardiovascular: Yes: Regular Rate and Rhythm Respiratory: Yes: CTA Bilaterally Gastrointestinal: Yes: Soft. No: Tenderness Renal/: No: CVA Tenderness - Left, CVA Tenderness - Right, Mcqueen Present, Hematuria Musculoskeletal: No: Joint Stiffness, Joint Swelling Extremities: No: Cold, Cool, Cyanosis Edema: No Integumentary: No: Rash, Venous Stasis Changes Neurological: Yes: WNL, Alert, Oriented ...Motor Strength: WNL Psychiatric: Yes: WNL, Alert, Oriented. 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 Condition: Improved - Instructions Diet, Activity, Other Instructions: f/u PCP and orthopedics drs in 1-2 weeks after DC floridalma removal per ortho f/u labs CBC CMP q1-2 weeks in DC PT rehab, falls precautions Referrals: Santo Rendon MD [Staff Physician] - Shayla Nguyen MD [Primary Care Provider] - Disposition: [facility] - Home Medications Comprehensive Discharge Medication List: Ambulatory Orders Metformin HCl [Glucophage] 500 mg PO DAILY 01/01/12 Verapamil HCl ER [Calan Sr -] 240 mg PO AM 01/01/12 Apixaban [Eliquis -] 5 mg PO BID 07/24/18 Atorvastatin Ca [Lipitor] 20 mg PO HS 07/24/18 Metoprolol Succinate 50 mg PO DAILY 07/24/18 Sertraline HCl [Zoloft] 100 mg PO DAILY 07/24/18 Acetaminophen [Tylenol .Regular Strength -] 650 mg PO Q6H PRN tablet 07/30/18 Docusate Sodium [Colace -] 100 mg PO DAILY capsule 07/30/18 Gabapentin [Neurontin -] 300 mg PO TID capsule 07/30/18 Insulin Sliding Scale [Novolog Vial Sliding Scale -] 1 vial SQ BIDAC units Lactobacillus Acidophilus [Bacid -] 1 tab PO DAILY tab 07/30/18 Potassium Chloride [K-Dur -] 20 meq PO DAILY tablet.er 07/30/18 Acetaminophen [Tylenol .Regular Strength -] 325 mg PO Q6H PRN tablet 09/24/18 Calcium 500Mg/Vit-D 200 Units [Os-Silvino 500+D -] 1 tab PO BID tab 09/24/18 oxyCODONE HCL [Roxicodone -] 5 mg PO Q6H PRN tablet MDD 20 mg 09/24/18
[2018-09-25] MEDS: DOCUSATE SODIUM 100 MG CAPSULE (FP) PO SCH (10:04)
[2018-09-25] MEDS: SERTRALINE HCL 50 MG TABLET (FP) PO SCH (10:04)
[2018-09-25] MEDS: APIXABAN 5 MG TABLET PO SCH (10:05)
[2018-09-25] MEDS: CALCIUM 500MG/VIT-D 200 UNITS COMBO TABLET (FP) PO SCH (10:05)
[2018-09-25] MEDS: VERAPAMIL HCL 240 MG E.R. TABLET (FP) PO SCH (10:05)
[2018-09-25] MEDS: POTASSIUM CHLORIDE TABS 20 MEQ TABLET.ER (FP) PO SCH (10:05)
[2018-09-25] MEDS: oxyCODONE HCL 5 MG TABLET PO PRN (12:38)
[2018-09-25 14:17] VITALS: PULSE 72; TEMP 98.1
[2018-09-25] MEDS: ACETAMINOPHEN 325 MG TABLET (FP) PO PRN (15:41)
[2018-09-25 16:29] VITALS: BP 122/70
== END 2018-09-25 16:31 | disposition home health service (06) | DRG 956 ==
LOC: JER 12:24 → JERBED 14:44 → J6S 23:45
PROVIDERS: ADMIT Internal Medicine; ATTEND Internal Medicine
PROC: 0QS706Z Reposition Left Upper Femur with Intramedullary Internal Fixation Device, Open Approach (ICD-10-PCS; principal; 2018-09-20 19:00)
DX: S72.142A Displaced intertrochanteric fracture of left femur, initial encounter for closed fracture (principal); S32.501A Unspecified fracture of right pubis, initial encounter for closed fracture; D62 Acute posthemorrhagic anemia; W01.0XXA Fall on same level from slipping, tripping and stumbling without subsequent striking against object, initial encounter; Y93.89 Activity, other specified; Y92.481 Parking lot as the place of occurrence of the external cause; Y99.8 Other external cause status; I10 Essential (primary) hypertension; E11.9 Type 2 diabetes mellitus without complications; I48.91 Unspecified atrial fibrillation; M81.0 Age-related osteoporosis without current pathological fracture; D64.9 Anemia, unspecified; I25.10 Atherosclerotic heart disease of native coronary artery without angina pectoris; R50.82 Postprocedural fever; Z95.0 Presence of cardiac pacemaker; Z95.5 Presence of coronary angioplasty implant and graft; R29.6 Repeated falls; Z97.4 Presence of external hearing-aid; Z79.84 Long term (current) use of oral hypoglycemic drugs; E78.5 Hyperlipidemia, unspecified; Z87.891 Personal history of nicotine dependence; Z90.710 Acquired absence of both cervix and uterus
CPT/HCPCS: 36415; 36430; 71045-TC-FY; 73523-TC-FY; 76000-TC-FY; 80048; 80053; 81003; 81015; 82550; 84484; 85025; 85610; 85730; 86850; 86900; 86901; 86922; 87040; 87086; 93005; 93010; 94010; 94760; 97116-GP; 97162-GP; 99284-25; P9038; P9058